=== PATIENT | male | born 1945 | race Caucasian/White ===

== ENCOUNTER 2019-11-11 16:30 | Inpatient (IN) | payer OTHER ==
[~2019-11-11] VITALS: Ht 175.3 cm; Wt 84.4 kg
--- NOTE | ~2019-11-11 | HC ---
[facility] [place] [address] CONSULTATION Name: ODELL ZARAGOZA Room #: 211-P [facility] IN ..#: [id number] Admission: 11/15/19 Attend Phys: Jamar Palumbo MD Discharge: Date of : 45 Report #: [id number] THIS REPORT FOR: cc: JULISA - No family physician/PCP FAM - No family physician/PCP Agustín Carrera MD ~ DATE OF SERVICE: 11/24/2019 HISTORY OF PRESENT ILLNESS: The patient is a 74-year-old white male, admitted with fever, chills, increased shortness of breath, and elevated heart rate, diagnosed with sepsis, SVT, and acute renal insufficiency. He is noted to have acute hypoxic respiratory failure. He is COVID negative. He is noted to have atrial fibrillation and congestive heart failure. He is being followed by multiple acura sales consultant physicians. He has had a significant decline from his premorbid functional status. We are seeing him in rehabilitation medicine consultation. PAST MEDICAL HISTORY: Includes hypertension and prostate CA. He has had a prior pneumothorax and elevated lipids. MEDICATIONS: Please see the full medication listing. ALLERGIES: PENICILLIN. SOCIAL HISTORY: He lives in a house with his , 2 steps in. There is not a bedroom on the main level, but there is a couch. There is a flight of steps up to the bedroom. is there, does not work outside the home. There is an involved daughter, who is a speech therapist. HABITS: Past tobacco usage. REVIEW OF SYSTEMS: No current complaints of chest pain, shortness of breath or abdominal discomfort. PHYSICAL EXAMINATION: GENERAL: A 74-year-old white male, in no obvious distress. VITAL SIGNS: Last recorded temperature 97.4, pulse 82, respirations 18, blood pressure 135/34. NEUROLOGIC: He is alert, follows basic commands. He tends to defer some of the answers to his . NEUROMUSCULOSKELETAL: He has functional range of motion of both upper and lower extremities. Upper extremity strength is probably a grade 3+ to 4-/5. Lower extremity, he has 2+ dependent edema to bilateral shins, strength is probably a grade 3+ to 4-/5. He has been min assist with sit to stand, min assist ambulating short distance holding on to the handrail. He is currently on 4.5 liters at rest. [address] [address] CONSULTATION Name: ODELL ZARAGOZA Jonathan Room #: 211-P [facility] IN .R.#: [id number] Admission: 11/15/19 Attend Phys: Jamar Palumbo MD Discharge: Date of : 45 Report #: [id number] ASSESSMENT: A 74-year-old white male with the following problem list: 1. Medical complexity with generalized debilitation. 2. Acute hypoxic respiratory failure. 3. Severe obstructive sleep apnea. 4. Community-acquired pneumonia. He is COVID-19 negative. 5. Streptococcal bacteremia. 6. Sepsis. 7. Acute diastolic heart failure. 8. Paroxysmal atrial fibrillation with rapid ventricular rate. 9. Acute renal insufficiency. 10. History of chronic tobacco use. 11. Hypertension. 12. Supraventricular tachycardia. PLAN: We will add occupational therapy to assess ADLs. Discuss with the patient's . There was a question of some possible aspiration and we will ask Speech Therapy to do an evaluation. Would anticipate that he should be a good acute in-hospital [address] [place] [address] inpatient rehabilitation candidate as he further medically stabilizes. We will be glad to follow along with you regarding his rehab therapy needs. By: 1151 0032 Agustín Carrera MD /nt
[2019-11-11 16:35] VITALS: BP 107/55
[2019-11-11 17:24] LABS: ANION GAP 10 mmol/L (7-16); BUN 32 mg/dL (7-18); CALCIUM 9.3 mg/dL (8.5-10.1); CHLORIDE 93 mmol/L (98-107); CO2 26 mmol/L (21-32); CREATININE 1.4 mg/dL (0.7-1.3); GLUCOSE 109 mg/dL (74-106); SODIUM 129 mmol/L (136-145)
[2019-11-11 17:31] LABS: HEMATOCRIT 34.6 % (42.0-52.0); HEMOGLOBIN 11.7 gm/dL (14.0-18.0); MCH 33.5 pg (26.0-34.0); MCHC 33.8 g/dL (28.0-37.0); RBC 3.49 mil/uL (4.50-6.00); RDW 13.8 % (10.5-14.5); WBC 16.4 thou/uL (4.0-11.0)
[2019-11-11 17:33] LABS: ALBUMIN 2.9 g/dL (3.4-5.0); SGOT 36 U/L (15-37); SGPT 33 U/L (30-65); TOTAL BILIRUBIN 0.6 mg/dL (0.2-1.0); TOTAL PROTEIN 7.9 g/dL (6.4-8.2); TROPONIN-I <0.06 ng/mL (<0.06)
[2019-11-11] MEDS ORDERED: LOVASTATIN 20 M20 MG PO (18:00)
[2019-11-11 19:55] LABS: URINE BILIRUBIN NEGATIVE (Negative); URINE BLOOD 1+ (Negative); URINE CLARITY CLEAR; URINE COLOR YELLOW; URINE GLUCOSE-RANDOM* NEGATIVE (Negative); URINE KETONES TRACE (Negative); URINE LEUKOCYTES-REFLEX NEGATIVE (Negative); URINE NITRITE-REFLEX NEGATIVE (Negative); URINE PROTEIN (DIPSTICK) NEGATIVE (Negative); URINE UROBILINOGEN 0.2 E.U./dl (0.2-1.0)
[2019-11-11 20:18] VITALS: BP 116/35
[2019-11-11 20:19] LABS: SQUAMOUS 0-3 Few /LPF (0-3); URINE RBC 3-10 Few /HPF (0-2); URINE WBC-REFLEX 0-5 Rare /HPF (0-5)
[2019-11-11 20:20] LABS: BACTERIA-REFLEX 1-9 Few /HPF (None Seen); CRYSTALS None Seen /LPF (None Seen); HYALINE CASTS 0-3 Few /LPF (None Seen)
[2019-11-11 20:24] VITALS: BP 105/34
[2019-11-11 21:20] VITALS: BP 110/36
[2019-11-12] VITALS: BP 105/38
[2019-11-12] MEDS ORDERED: LISINOPRIL-HCT1 EAC1 PO (01:56)
--- NOTE | 2019-11-12 03:34 | NUR ---
ADMIT PT ADMITTED TO [facility] FROM ED FOR VIRAL SEPSIS, VIK AND SVT. PT HAD TESTED FOR COVID 10 DAYS AGO BUT CONTINUED TO HAVE SYMPTOMS SOB, TEMP, CHILLS AND SENT TO URGENT CARE BY PMD FOR ANOTHER COVID TEST. FOUND TO BE TACHYCARDIC AT URGENT CARE SO SENT TO ED, AND ADMITTED A SUSPECTED COVID PATIENT. LABS TAKEN AND PT ORIENTED TO ROOM ,CALL LIGHT AND POC. IVF'S INITIATED ANTIBIOTICS ADMINISTERED ORDERED. CONSULTS TO AND CALLED.
[2019-11-12 04:03] VITALS: BP 100/31
[2019-11-12 05:34] LABS: HEMATOCRIT 35.8 % (42.0-52.0); HEMOGLOBIN 12.2 gm/dL (14.0-18.0); MCH 33.8 pg (26.0-34.0); MCV 99.4 fL (80.0-100.0); RBC 3.6 mil/uL (4.50-6.00); RDW 13.7 % (10.5-14.5)
[2019-11-12 05:42] LABS: CALCIUM 8.8 mg/dL (8.5-10.1); CREATININE 1.6 mg/dL (0.7-1.3); POTASSIUM 3.6 mmol/L (3.5-5.1)
--- NOTE | 2019-11-12 07:47 | EKG ---
[facility] [place] [address] ELECTROCARDIOGRAM REPORT Name: ODELL ZARAGOZA Room #: 355-P ADM IN M.R.#: [id number] Admission: 11/11/19 Attend Phys: Jamar Palumbo MD Discharge: Date of : 45 Report #: [id number] THIS REPORT FOR: cc: JULISA - No family physician/PCP FAM - No family physician/PCP Tobin Quevedo MD [facility] ~ THIS REPORT FOR: //name// [facility] ED Test Date: 2019-11-11 Test Time: 16:46:51 Pat Name: ODELL ZARAGOZA Department: Room: [facility] Gender: M Yam Curer: kf : 1945 Requested By: Matt Ivan Order Number: [id number] MD: Tobin Quevedo Measurements Intervals [place] Rate: 110 P: 68 CA: 159 QRS: 208 QRSD: 92 T: 41 QT: 322 QTc: 436 Interpretive Statements Sinus tachycardia Possible anteroseptal infarct, age indeterminate Baseline wander in lead(s) II,III,aVF No previous ECG available for comparison Electronically Signed On 11-12-2019 7:47:16 CDT by Tobin Quevedo [email or web address] <ELECTRONICALLY SIGNED> By: Tobin Quevedo MD, FAC 11/12/19 0747 [id number] Tobin Quevedo MD, [facility] /EPI
[2019-11-12 09:04] VITALS: BP 116/44
[2019-11-12 16:37] VITALS: BP 100/35
--- NOTE | 2019-11-12 18:09 | NUR ---
ASSUMED PATIENT CARE AT 0700. A/O X4. NSR ON MONITOR. COVID NEGATIVE. PROGRESSING TOWARDS POC GOALS.
[2019-11-12 19:46] VITALS: BP 102/41
[2019-11-13] VITALS (7 sets, daily range): BP systolic 113–145; BP diastolic 42–53
[2019-11-13 03:57] LABS: BE(vivo) -7.5 mmol/L (-2 to +3); PO2 84.7 mmHg (80.0-100.0); sO2 94.6 % (92.0-98.0)
[2019-11-13 03:59] LABS: pH 7.237 (7.360-7.450)
[2019-11-13 04:06] LABS: HEMATOCRIT 40.5 % (42.0-52.0); HEMOGLOBIN 13.5 gm/dL (14.0-18.0); MCH 33.4 pg (26.0-34.0); MCHC 33.4 g/dL (28.0-37.0); MCV 99.9 fL (80.0-100.0); RBC 4.06 mil/uL (4.50-6.00); RDW 13.6 % (10.5-14.5); WBC 22.5 thou/uL (4.0-11.0)
[2019-11-13 04:10] LABS: CALCIUM 8.9 mg/dL (8.5-10.1); CREATININE 1.1 mg/dL (0.7-1.3); MAGNESIUM 1.8 mg/dL (1.8-2.4)
--- NOTE | 2019-11-13 04:34 | NUR ---
Pt c/o increased shortness of air with decreased O2 sats. OPERATIONS SUPPORT REPRESENTATIVE called. See OPERATIONS SUPPORT REPRESENTATIVE flowsheet.
--- NOTE | 2019-11-13 05:26 | NUR ---
rat team called at 0355 for increased respiratory distress o2 sats in 80's on 2 liters tachypenic and tachycardic. cxr, abg,s rt tx's and labs ordered. rat team and clarissa sánchez gas operations superintendent in to evaluate pt 40 mg iv lasix given ivp, 125 mg solumedrol ordered and given ivp, fluids dc's. abg's completed shows some acidosis pt placed on bipap, cxr results show the elevated right diagphram and some infiltrates on the left and some plueral effusion on the right. vss bp 148/60, hr 125, rr 25 temp 98.2 o2 sat on bipap 100%. continue to monitor.
--- NOTE | 2019-11-13 06:22 | NUR ---
progress pt sleeping tolerating bipap voiding larger amounts 1000 out so far this shift, iv fluids dc'd iv antibiotics continue, RT tx's as ordered repeat labs and abg ordered for this am tele intact reading sr with rates back to the 80's to 90's. continue to monitor
[2019-11-13 06:36] LABS: BE(vivo) -6.1 mmol/L (-2 to +3); HCO3 20.3 mmol/L (22.0-26.0); PCO2 43.2 mmHg (35.0-45.0); PO2 92.1 mmHg (80.0-100.0); sO2 96.2 % (92.0-98.0)
--- NOTE | 2019-11-13 11:26 | NUR ---
ASSUMED PATIENT CARE THIS AM AT APPROXIMATELY 0700. PATIENT AWAKE ALERT ORIENTED. ON BIPAP AT 50% AND O2 SAT GREATER THAN 96%. ATTEMPTED TO TAKE PATIENT OFF BIPAP THIS AM FOR BREAKFAST AND RT SWITCHED PATIENT TO HIGHFLOW NC. PATIENT UNABLE TO TOLERATE NC ALTHOUGH O2 SAT STAYED STABLE AT 94% BUT WANTED TO BE PLACED BACK ON BIPAP. PATIENT RESPIRATIONS EVEN AND SLIGHTLY LABORED THIS AM BUT STATES THAT HE FEELS THAT HIS BREATHING IS BETTER. CALLED TO UPDATE ON PATIENT CONDITION AND OVERNIGHT OCCURANCES, STATES SHE WOULD LIKE TO SPEAK WITH DR. FIELDS THIS AM. DR. FIELDS MADE AWARE AND SPOKE WITH TO UPDATE ON PLAN OF CARE. SEE NEW ORDERS FOR DR. DASILVA CONSULT, CALLED THIS AM TO ANSWERING SERVICE AND AWAITING CALL BACK. OBTAINED NEW ROOM ON CCU AND PATIENT TRANSFERRED AT ABOUT 1100 VIA WHEELCHAIR, REPORT CALLED TO MILI ERIC. PATIENT MADE AWARE OF TRANSFER, ROOM NUMBER AND VISITING HOURS.
--- NOTE | 2019-11-13 19:42 | NUR ---
PT CARE ASSUMED AT 1200. ASSESSMENT CHARTED. MEDICATION CHARTED. LFA IV. BIPAP 16/6/; 50%; 18 RR. O2 HIGH FLOW 8LPM NC. WHEEZES. AO X 4. SBA.
--- NOTE | 2019-11-13 19:45 | NUR ---
CALL MULTIPLE TIMES TO ALL NUMBERS ASSOCIATED WITH DR. العراقي: ANSWERING SERVICE RINGS ONCE AND STATES "GOOD BYE" AND DISCONNECTS. ATTEMPTED TO REACH VIA OFFICE NUMBER, BUT WAS UNABLE TO DIRECTLY CONTACT HIM. LEFT MESSAGE ON CONSULTATION PHONE.
[2019-11-14] VITALS (8 sets, daily range): BP systolic 109–139; BP diastolic 40–58
--- NOTE | 2019-11-14 01:48 | NUR ---
PATIENT WOKE FROM SLEEP TO CALL AND STATE THAT HE FELT SHORT OF BREATH, AUDIBLY WHEEZING HEARD FROM DOORWAY. 8L HFNC, SATS 95%, MILDLY LABORED. CALL TO DR. DASILVA TO REQUEST LASIX PATIENT IS FLUID POSITIVE AND POSSIBLY STEROIDS ON RECOMMENDATION OF RT. ORDERS RECIEVED, BIPAP PLACED ON PATIENT
[2019-11-14 02:49] LABS: HEMATOCRIT 36.5 % (42.0-52.0); HEMOGLOBIN 12.2 gm/dL (14.0-18.0); MCH 33.2 pg (26.0-34.0); MCHC 33.4 g/dL (28.0-37.0); MCV 99.4 fL (80.0-100.0); RBC 3.67 mil/uL (4.50-6.00); RDW 13.4 % (10.5-14.5); WBC 20.4 thou/uL (4.0-11.0)
[2019-11-14 03:02] LABS: CREATININE 1.5 mg/dL (0.7-1.3); POTASSIUM 3.7 mmol/L (3.5-5.1)
[2019-11-14 03:13] LABS: CALCIUM 8.5 mg/dL (8.5-10.1)
--- NOTE | 2019-11-14 11:11 | 2DMMODE ---
[facility] [place] [address] 2 D/M-MODE ECHOCARDIOGRAM Name: ODELL ZARAGOZA Room #: 211-P ADM IN .R.#: [id number] Admission: 11/11/19 Attend Phys: Jamar Palumbo MD Discharge: Date of : 45 Report #: [id number] THIS REPORT FOR: cc: JULISA Gutiérrez family physician/PCP JULISA - Marla family physician/PCP Kalpesh Hines MD [facility] ~ APPROVED REPORT Study performed: 11/13/2019 08:43:17 EXAM: Comprehensive 2D, Doppler, and color-flow Echocardiogram Patient Location: Bedside Room #: 355 Status: routine BSA: 1.99 HR: 120 bpm BP: 148/61 mmHg Rhythm: Tachycardia Other Information Study Quality: Technically Difficult Technically limited study due to inability to position patient, patient sitting up on BiPap, difficulty breathing. Indications Tachycardia Hypertension/HDD HLD 2D Dimensions RVDd: 27.69 mm IVSd: 11.74 (7-11mm) LVOT Diam: 19.29 (18-24mm) LVDd: 42.39 mm PWd: 12.67 (7-11mm) LVDs: 24.94 (25-40mm) Aortic Root: 33.14 mm Volumes Left Atrial Volume (Systole) Single Plane 4CH: 39.65 mL Single Plane 2CH: 51.50 mL LA ESV Index: 26.00 mL/m2 Aortic Valve [facility] [address] [address] 2 D/M-MODE ECHOCARDIOGRAM Name: ODELL ZARAGOZA Room #: 211-P ADM IN .R.#: [id number] Admission: 11/11/19 Attend Phys: Jmaar Palumbo, Discharge: Date of : 45 Report #: [id number] AoV Peak Elver.: 1.51 m/s AO Peak Gr.: 11.44 mmHg Tricuspid Valve TR Peak Elver.: 2.94 m/s TR Peak Gr.: 34.58 mmHg Left Ventricle The left ventricle is normal size. Mild concentric left ventricular hypertrophy. The left ventricular systolic function is normal. The left ventricular ejection fraction is within the normal range. LVEF is 55-60%. This study is not technically sufficient to allow evaluation of the LV diastolic function. Right Ventricle The right ventricle is normal size. The right ventricular systolic function is normal. Atria The left atrium size is normal. The right atrium size is normal. Aortic Valve The aortic valve is normal in structure. Moderate aortic regurgitation. There is no aortic valvular stenosis. Mitral Valve The mitral valve is normal in structure. There is no mitral valve regurgitation noted. No evidence of mitral valve stenosis. Tricuspid Valve The tricuspid valve is normal in structure. Trace tricuspid regurgitation. PAP is estimated at 35 mmHg + estimated right atrial pressure. Pulmonic Valve Pulmonic valve is not well visualized. Great Vessels The aortic root is normal in size. IVC is not visualized. Pericardium There is no pericardial effusion. <Conclusion> [facility] [address] [place] [address] 2 D/M-MODE ECHOCARDIOGRAM Name: ODELL ZARAGOZA Jonathan Room #: 211-P ADM IN M.R.#: [id number] Admission: 11/11/19 Attend Phys: Jamar Palumbo, Discharge: Date of : 45 Report #: [id number] Normal ventricle size, mild concentric hypertrophy ejection fraction of 60% No evidence of segmental wall motion normality Trace of tricuspid valve insufficiency PA pressure systolic estimated 35 mmHg Mild to moderate aortic valve insufficiency Negative for pericardial effusion. <ELECTRONICALLY SIGNED> By: Kalpesh Hines MD, FACC 11/14/190 09 09 Kalpesh Hines MD, FACC /INF
--- NOTE | 2019-11-14 18:41 | NUR ---
PT CARE ASSUMED AT 0700. ASSESSMENT CHARTED. MEDICATION CHARTED. DIAPHRAGMATIC HERNIA, PLEURAL EFFUSIONS. PT EXPERIENCED 7-9 EPISODES OF TACHYCARDIA IN THE 150'S APPROX 1400- 1500. BREATHING TX'S CHANGED FROM Q4PRN TO Q4 SCHEDULED. BIPAP 16/6; 50%; 18 RR; HS & PRN. O2 4LPM HFNC; SaO2 96%.
[2019-11-15 04:09] LABS: CALCIUM 8.5 mg/dL (8.5-10.1); CREATININE 1.4 mg/dL (0.7-1.3); POTASSIUM 4.1 mmol/L (3.5-5.1)
[2019-11-15 04:16] VITALS: BP 146/57
--- NOTE | 2019-11-15 06:41 | NUR ---
ASSESSMENTS CHARTED, MEDS CHARTED GIVEN. PT RESTING IN BED DURING SHIFT. AUDIBLE WHEEZES. PATIENT UNABLE TO HANDLE THE BIPAP AT NIGHT, NOR THE CPAP. HAS BEEN ON NC SINCE. ON ABX THERAPY DURING SHIFT. FALL PRECAUTIONS IN PLACE DURING SHIFT. DENIED PAIN.
[2019-11-15 08:35] VITALS: BP 133/50
[2019-11-15 11:45] VITALS: BP 149/49
[2019-11-15 16:00] VITALS: BP 128/48
--- NOTE | 2019-11-15 17:28 | NUR ---
met with patient and . Patient admits with fever, cough. Patient has neg COVID test. Patient/ reside in independent home. Patient has steps in home and no difficulty. No hx of DME. or HH care. Patient cont to drive. Therapy evals ordered. patient reports difficulty with endurance. he is rec oxygen which he does not use at home. He also has used BIPAP that he also does not have at home. Planned echo in am. Casemgt following.
[2019-11-15 18:47] LABS: URINE BILIRUBIN NEGATIVE (Negative); URINE BLOOD NEGATIVE (Negative); URINE CLARITY CLEAR; URINE COLOR YELLOW; URINE GLUCOSE-RANDOM* NEGATIVE (Negative); URINE KETONES NEGATIVE (Negative); URINE LEUKOCYTES NEGATIVE (Negative); URINE NITRITE NEGATIVE (Negative); URINE PROTEIN (DIPSTICK) NEGATIVE (Negative); URINE UROBILINOGEN 0.2 E.U./dl (0.2-1.0)
--- NOTE | 2019-11-15 18:50 | NUR ---
ASSUMED CARE OF PT AT SHIFT CHANGE. ASSESSMENTS CHARTED. MEDS GIVEN PER APR. PT A&OX4, NO C/O PAIN. PT O2 REDUCED TO 2L FROM 4L. AUDIBLE WHEEZES. NO C/O SOA. HR OCCASIONALLY SPIKES TO 150S, BUT NOT SUSTAINED. PLAN FOR ANGELA IN [facility]. WILL CONTINUE TO MONITOR AND FOLLOW POC.
[2019-11-15 20:21] VITALS: BP 162/48
--- NOTE | 2019-11-16 00:29 | NUR ---
ASSESSMENTS CHARTED, MEDS CHARTED GIVEN. PATIENT RESTING IN BED DURING SHIFT. STATES FEELING BETTER, BREATHING EASIER. NPO SINCE MIDNIGHT FOR TRANS ESOPHOGEAL PROCESS IN AM. PT C/O BURING WHEN URINATING, LAB RESULTS ARE NEGATIVE ON URINE. FALL PRECAUTIONS IN PLACE DURING SHIFT. DENIED PAIN.
[2019-11-16 04:43] VITALS: BP 134/72
[2019-11-16 07:30] VITALS: BP 141/64
[2019-11-16 11:20] VITALS: BP 131/55
[2019-11-16 16:00] VITALS: BP 126/57
--- NOTE | 2019-11-16 17:34 | NUR ---
ASSUMED CARE OF PT AT SHIFT CHANGE. ASSESSMENTS CHARTED. MEDS GIVEN PER APR. PT A&OX4, NO C/O PAIN. ANGELA POSTPONED UNTIL TOMORROW, AUDIBLE WHEEZE IS A BIT BETTER. ON 2L NC. WILL CONTINUE TO MONITOR AND FOLLOW POC.
[2019-11-16 20:11] VITALS: BP 138/44
[2019-11-17 03:30] VITALS: BP 131/52
--- NOTE | 2019-11-17 05:24 | NUR ---
SLEPT PART OF SHIFT UP IN CHAIR. ASSISTED TO BATHROOM X2 WITH ELEVATED HR 150-160'S. ONCE BACK TO CHAIR HR BACK TO 90-110. DENIES COMPLAINTS OF PAIN. DOES HAVE SHORTNESS OF AIR. RT PRN BREATHING TREATMENTS ADDED, PATIENT BECOMES ANXIOUS WITH SHORTNESS OF AIR AT TIMES. WORKING ON GOALS AND PLAN OF CARE FOR NOC. O2 HAS REMAINED ON 4L/NC THIS SHIFT. NO FURTHER AUDIBLE WHEEZES NOTED THIS AM. NOT PROGRESSING TOWARDS DISCHARGE GOALS AT THIS TIME. CONTINUE TO ASSES CLOSELY.
[2019-11-17 08:33] VITALS: BP 123/41
[2019-11-17 10:13] LABS: CALCIUM 9.1 mg/dL (8.5-10.1); CREATININE 0.9 mg/dL (0.7-1.3); POTASSIUM 5.6 mmol/L (3.5-5.1)
[2019-11-17 12:00] VITALS: BP 128/52
--- NOTE | 2019-11-17 14:07 | NUR ---
Patient unable to lay flat for ANGELA, cont diuresing. Casemgt following, therapy evals in process.
--- NOTE | 2019-11-17 14:47 | EKG ---
[facility] [place] [address] ELECTROCARDIOGRAM REPORT Name: ODELL ZARAGOZA Room #: 211-P ADM IN M.R.#: [id number] Admission: 11/15/19 Attend Phys: Jamar Palumbo MD Discharge: Date of : 45 Report #: [id number] THIS REPORT FOR: cc: JULISA - No family physician/PCP FAM - No family physician/PCP Ry Person MD ~ THIS REPORT FOR: //name// [facility] Test Date: 2019-11-17 Test Time: 14:36:23 Pat Name: ODELL ZARAGOZA Department: Room: 211 P Gender: M Measurement And Sensing Technician: EMANUEL : 1945 Requested By: Kalpesh Hines Order Number: [id number] MD: Ry Person Measurements Intervals [place] Rate: 103 P: 66 NV: 160 QRS: -70 QRSD: 93 T: 47 QT: 356 QTc: 466 Interpretive Statements Sinus tachycardia Multiple premature complexes, vent & supraven left atrial enlargement Left axis deviation Low voltage, extremity leads Abnormal R-wave progression, late transition Compared to ECG 11/11/2019 16:46:51 Left-axis deviation now present Low QRS voltage now present Electronically Signed On 11-17-2019 14:47:12 CDT by Ry Person [email or web address] <ELECTRONICALLY SIGNED> By: Ry Person MD 11/17/19 1447 [id number] Ry Person MD /EPI
--- NOTE | 2019-11-17 16:43 | NUR ---
ASSUMED CARE OF PT AT SHIFT CHANGE. ASSESSMENTS CHARTED. MEDS GIVEN PER APR. PT A&OX4, NO C/O PAIN. PT ON 4L NC. ANGELA CANCELLED PT COULD NOT LAY FLAT D/T SOA. HR BEGAN TO SPIKE UP AND DOWN TO 150-170S, POSSIBLE AFIB. NOTIFIED CARDIOLOGY WHO STARTED DILTIAZEM AND ELOQUIS. HR NOW MORE STABLE. WILL CONTINUE TO MONITOR AND FOLLOW POC.
[2019-11-17 16:57] VITALS: BP 114/31
[2019-11-17 20:00] VITALS: BP 118/49
[2019-11-18] VITALS (7 sets, daily range): BP systolic 112–127; BP diastolic 43–89
[2019-11-18 06:03] LABS: HEMATOCRIT 39.1 % (42.0-52.0); MCHC 33.2 g/dL (28.0-37.0); MCV 99.4 fL (80.0-100.0); PLATELET COUNT 397 thou/uL (150-400); RBC 3.94 mil/uL (4.50-6.00); WBC 19.9 thou/uL (4.0-11.0)
[2019-11-18 06:13] LABS: CALCIUM 9.2 mg/dL (8.5-10.1); TOTAL BILIRUBIN 0.8 mg/dL (0.2-1.0); TOTAL PROTEIN 6.8 g/dL (6.4-8.2)
[2019-11-18 06:16] LABS: POTASSIUM 4.4 mmol/L (3.5-5.1)
--- NOTE | 2019-11-18 06:30 | NUR ---
SLEPT PART OF SHIFT IN BED AND UP IN CHAIR. AT 0036 TELEMETRY SHOWS INCREASED FREQUENCY OF AFIB RATE 150-160'S. VSS. NOTIFIED CARDIOLOGY AND STARTED ON CARDIZEM GTT AT 5CC/HR. HR THIS AM SR RATE 80-90'S. PATIENT REMAINS WITHOUT COMPLAINTS BUT STILL WITH SHORTNESS OF AIR WITH ACTIVITY. O2 REMAINS AT 4.5L/NC, LUNG SOUNDS REMAIN COURSE. NO AUDIBLE WHEEZES. WORKING ON GOALS AND PLAN OF CARE FOR NOC. CONTINUE TO ASSES CLOSELY.
[2019-11-18 07:24] LABS: ABSOLUTE NEUTROPHILS 18.9 thou/uL (1.4-8.2)
[2019-11-18 07:25] LABS: LARGE PLATELETS OCCASIONAL; PLATELET ESTIMATE NORMAL
--- NOTE | 2019-11-18 09:33 | EKG ---
[facility] [place] [address] ELECTROCARDIOGRAM REPORT Name: ODELL ZARAGOZA Room #: 211-P ADM IN M.R.#: [id number] Admission: 11/15/19 Attend Phys: Jamar Palumbo MD Discharge: Date of : 45 Report #: [id number] THIS REPORT FOR: cc: JULISA - No family physician/PCP FAM - No family physician/PCP Ry Person MD ~ THIS REPORT FOR: //name// [facility] Test Date: 2019-11-18 Test Time: 01:04:09 Pat Name: ODELL ZARAGOZA Department: Room: 211 P Gender: M Licensed Insurance Sales Agent: 2N : 1945 Requested By: Abbi Medeiros Order Number: [id number] MD: Ry Person Measurements Intervals [place] Rate: 119 P: [place]: QRS: -83 QRSD: 94 T: 50 QT: 332 QTc: 468 Interpretive Statements Sinus rhythm with an episode of atrial fibrillation Left axis deviation low voltage, extremity leads Baseline wander in lead(s) V2 Compared to ECG 11/17/2019 14:36:23 Self-limited atrial fibrillation is new Electronically Signed On 11-18-2019 9:33:38 CDT by Ry Person [email or web address] <ELECTRONICALLY SIGNED> By: Ry Person MD 11/18/19 0933 3 3 Ry Person MD /EPI
--- NOTE | 2019-11-18 12:24 | NUR ---
Case discussed with the care team in unit rounds. Pt started on cardezim gtt and possible ANGELA procedure today. DC timeframe is uncertain. PT/OT evaling pt. Will follow for possible hh referral.
--- NOTE | 2019-11-18 17:41 | NUR ---
RECEIVED PT'S CARE AROUND 0740; PT. ON CHAIR; ALERT; DURING AM ASSESSMENT AOX4; NO C/O PAIN; AM MEDICATIONS GIVEN; EDUCATED ABOUT IT; EDUCATED ABOUT FLUIDS INTAKE; [facility]; EDUCATED ABOUT IMPORTANCE OF CALLING BEFORE GETTING UP [facility]; UPDATED ABOUT DOSES CHANGED ON CERTAIN MEDICATION [facility]; SR ON THE MONITOR; ONE EPISODE OF TACHY ON THE MONITOR; TITRATE O2 TO 3L; 02 SAT 90%; TITRATE UP TO 3.5; O2 SAT 93%; MONITORING; ASSESSMENT CHARGED; FOLLOWING POC; WILL PASS ON REPORT;
[2019-11-19 00:50] VITALS: BP 112/39
[2019-11-19 04:45] VITALS: BP 140/38
--- NOTE | 2019-11-19 08:03 | NUR ---
SLEPT PART OF SHIFT UP IN CHAIR. ASSISTED TO BATHROOM X2 LAST NOC. WITH FIRST TIME UP TO BATHROOM DESAT TO 80'% AND TOOK 30 MIN TO RECOVER PAST INCREASING O2 TO 6L/NC FROM 3.5. WITH SECOND TRIP INCREASED O2 TO 6L/NC WHILE UP AND TOLERATED BETTER. DENIES COMPLAINTS OF PAIN AND STILL HAS SHORTNESS OF AIR WITH ACTIVITY AND SOMETIMES AT REST. WORKING ON GOALS AND PLAN OF CARE FOR NOC. RHYTHM REMAINS IN SR RATE IN 90'S WITHOUT BURSTS OF AFIB THIS SHIFT. CONTINUE TO ASSES.
[2019-11-19 08:42] LABS: CALCIUM 9.4 mg/dL (8.5-10.1); CREATININE 1.3 mg/dL (0.7-1.3); POTASSIUM 4.9 mmol/L (3.5-5.1)
[2019-11-19 09:37] VITALS: BP 120/55
[2019-11-19 20:20] VITALS: BP 142/55
--- NOTE | 2019-11-19 21:40 | NUR ---
RECEIVED PT'S CARE AROUND 714; PT. ON CHAIR; ALERT; NOTICED LABORATED BREATHING; WHEEZING WITHOUT STETHOSCOPE; QUENCHER OPERATOR CORSET FITTER NOTIFIED; ORDERS ON PLACED; GONE FOR XRAY; SOB WITH EXERTION; 02 INCREASE TO 6L BY RT; O2 SAT 90%; O2 7L WITH AMBULATION; CARDIOLOGY NOTIFIED DURING ROUNDING; ORDERS RECEIVED; D/C CARDIZEM GTT; DR. PEREZ NOTIFIED DURING ROUNDING; ORDERS RECEIVED; PAGED DR. HYDE AND NOTIFIED GROCERY CLERK SELLING RECOMMENDATIONS; ORDERS RECEIVED; ONE TIME 40 MG LASIX GIVEN ONE TIME; BYPAP APPLIED DURING THE DAY; EDUCATED ABOUT USING BYPAP AT HS; [facility]; SPOUSE EDUCATED ABOUT POC & GOALS; [facility]; PT. ABLE TO REST DURING THE AFTEROON; EASY BREATHING DURING THE EVENING & DURING MEALS; SR ON THE MONITOR; ASSESSMENT CHARGED; FOLLOWING POC; PASSED ON REPORT;
[2019-11-20 04:45] VITALS: BP 129/57
[2019-11-20 05:03] LABS: CALCIUM 9.5 mg/dL (8.5-10.1); CREATININE 1.2 mg/dL (0.7-1.3); POTASSIUM 4.3 mmol/L (3.5-5.1)
--- NOTE | 2019-11-20 06:19 | NUR ---
PT ON HIS BIPAP TILL 129 THEN HE WAS UP TO CHAIR WITH 6L/HFC, NO C/O PAIN, VOIDING PER URINAL, VSS HR REMAINS NSR, PT/OT TO EVAL AND TX , WILL CON'T TO MONITOR PER PPOC.
[2019-11-20 08:10] VITALS: BP 139/38
[2019-11-20 12:00] VITALS: BP 127/49
--- NOTE | 2019-11-20 15:41 | NUR ---
ASSUMED CARE AT CHANGE OF SHIFT. ALERT X4, SOB WITH ELEVATED HEART RATE POST BREATHIN TX WHICH HRATE KIARA 164 AND IRREGULAR. CARDIOLOGY NOTIFIED WITH ODERS FOR AMIO DRIP. AT THIS TIME NSR. DENIES CHEST PAIN. KIARA FLOW NC 5L.EDEMA TO LE ENCOURAGED TO ELEVATE LEGS. DIURRESIS AND VOIDING 1400 AT THIS TIME. ASSIST X1. PERFERS TO REMAIN IN CHAIR. FALL PRECATIONS IN PLACE.
[2019-11-20 15:55] VITALS: BP 140/35
--- NOTE | 2019-11-20 18:43 | NUR ---
PT RESTING IN CHAIR, AT SIDE ASSISTING WITH URINAL WHEN NEEDED. REVIEWED MEDICATIONS AND POC WITH BOTH, 2ND IV PUT IN LFA BY IV TEAM, VANC STARTED, REASSURED PT THAT NURSING STAFF WOULD TAKE CARE OF HIS NEEDS DURING THE NIGHT
[2019-11-20 20:00] VITALS: BP 150/48; BP 150/78
[2019-11-21 00:32] VITALS: BP 145/43
[2019-11-21 04:11] VITALS: BP 135/35
[2019-11-21 08:09] VITALS: BP 143/34
[2019-11-21 12:15] VITALS: BP 138/35
[2019-11-21 15:50] VITALS: BP 142/44
[2019-11-21 16:58] LABS: BE(vivo) 7.4 mmol/L (-2 to +3); HCO3 32.5 mmol/L (22.0-26.0); PO2 73.6 mmHg (80.0-100.0); pH 7.458 (7.360-7.450); sO2 95.4 % (92.0-98.0)
--- NOTE | 2019-11-21 19:02 | NUR ---
PT GREW INCREASING ANXIOUS THROUGH OUT THE DAY STATING THAT HE FELT SHORT OF BREATH, RT SAID HIS O2 SATS WERE DROPPING TO 92 WHILE O2, CALLED DR DASILVA, HE CAME AND SAW PT, ORDERED BIPAP TO BE PUT BACK ON, PT HAS WORN BIPAP SINCE [place] 1300, STILL SOA, VERY DROWSY, HAS BEEN AT SIDE TO REORIENT PT WAKES UP SOMEWHAT CONFUSED, NO SITTER AVAILABLE, REPORT GIVEN TO ALFA,
[2019-11-21 20:27] VITALS: BP 138/46
[2019-11-22] VITALS (7 sets, daily range): BP systolic 105–152; BP diastolic 37–52
--- NOTE | 2019-11-22 04:42 | NUR ---
pt care assumed at around 1900, pt is awake, alert and oriented, at bedside, sr on the monitor, rates controlled in the 70s, assessments as charted, pt remains on bipap at all time, frequent rounding and education med to pt to keep the bipap on, states understanding, pt mildly anxious and could not sleep, glass or mirror inspector notified, order received for hydroxyzinex1, vss, states feeling better, will continue to monitor
[2019-11-22 05:21] LABS: CREATININE 1.2 mg/dL (0.7-1.3); POTASSIUM 3.6 mmol/L (3.5-5.1)
--- NOTE | 2019-11-22 14:30 | NUR ---
Nutrition: pt admitted with severe MAURO, CAP. Seen for LOS. PMH: HTN, HLD, COPD, prostate CA. Current weight up 10# from usual. Has 3+ bilateral leg/feet edema. On lasix. Pt/ familiar with diet and watch Na+ at home. PO intake averaging 70% of meals with the exception of yesterday when pt required the bipap all day. Reports improvement today and no longer on the bipap. Provided menu and instructed on ordering as desired. Low risk.
--- NOTE | 2019-11-22 19:06 | NUR ---
RECEIVED PT'S CARE AROUND 0710; PT. ON BED; ALERT; DURING AM ASSESSMENT NO C/O PAIN; AM MEDICATIONS GIVEN; PER SR. BARRETT ANGELA SCHEDULED TOMORROW 11/23/19; PASSED ON REPORT; C/O PAIN DURING THE AFTERNOON; PRN ACETAMINIPHEN GIVEN; EARLY ON THE AFTERNOON REQUESTED TO GO BACK TO BED; EDUCATED ABOUT REQUESTING CPAP BACK; RT NOTIFIED; SR ON THE MONITOR; ASSESSMENT CHARGED; FOLLOWING POC; CARDIAC REHAB NOTIFIED ABOUT NEW CHF X3; PASSED ON REPORT;
[2019-11-23 03:39] LABS: CALCIUM 9.1 mg/dL (8.5-10.1); CREATININE 1.7 mg/dL (0.7-1.3); POTASSIUM 3.6 mmol/L (3.5-5.1)
[2019-11-23 04:45] VITALS: BP 134/36
--- NOTE | 2019-11-23 06:44 | NUR ---
assumed pt care at the chnage of shift, pt is awake, alert and oriented, denies concerns during assessment, assessments as charted, bipap worn all night, o2sats stable, pt up to the chair this am, c/o hip pain, tyl given prn, no acute distress noted, will pass on report
[2019-11-23 08:00] VITALS: BP 146/40
[2019-11-23 12:00] VITALS: BP 139/36
[2019-11-23 16:43] VITALS: BP 128/33
--- NOTE | 2019-11-23 17:22 | NUR ---
RECEIVED PT'S CARE AROUND 709; PT. ON CHAIR; ALERT; DURING AM ASSESSMENT AOX4; C/O PAIN OVER HIPS; REFUSED PRN PAIN MEDICATION; EDUCATED ABOUT PAIN MANAGEMENT; [facility]; AM MEDICATIONS GIVEN; PER DR. BARRETT MILLER POST PONE INDEFINITELY; DR. AMARAL, DR. العراقي & DR. PEREZ NOTIFIED; THROUGH THE DAY NOT C/O SOB; ABLE TO AMBULATE FROM BED TO RESTHROOM WITHOUT C/O SOB; WORKED WITH PT; SR ON THE MONITOR; EDUCATED ABOUT FALL PRECAUTIONS; [facility] UNDERSTAND[facility]; ASSESSMENT CHARGED; FOLLOWING POC; WILL PASS ON REPORT;
[2019-11-23 19:05] VITALS: BP 147/36
[2019-11-24 04:03] VITALS: BP 158/43
--- NOTE | 2019-11-24 04:40 | NUR ---
assumed pt care at the change of shift, pt is awake, alert and oriented, up to the chair, sr on the monitor, assessments as charted, pt was on 4.5l o2 via nasal canula, o2sats stable; pt but on bipap, tolerating well, no acute distress noted, will continue to monitor
[2019-11-24 06:35] LABS: CREATININE 1.5 mg/dL (0.7-1.3); POTASSIUM 3.5 mmol/L (3.5-5.1)
[2019-11-24 08:25] VITALS: BP 135/34
[2019-11-24 11:30] VITALS: BP 125/30
[2019-11-24 16:29] VITALS: BP 135/34
--- NOTE | 2019-11-24 18:47 | NUR ---
ASSUMED CARE AT CHANGE OF SHIFT. EDEMA WITH HEAVINESS TO LE. ENCOURAGE PT TO MOVE TO BED TO HELP ELEVATE. ST BESSIE Castillo NOTES. NO CHANGE IN DIET ORDERS. COMPLAINT WITH CARES. BEDSIDE. CONTINUES TO PROGRESS TOWARDS GOALS. FALL PRECATION, CALL LIGHT AND PERSONAL ITEMS IN REACH.
[2019-11-24 19:30] VITALS: BP 138/38
[2019-11-24 23:52] VITALS: BP 155/42
[2019-11-25 04:30] VITALS: BP 119/40
[2019-11-25 05:11] LABS: CALCIUM 8.7 mg/dL (8.5-10.1); CREATININE 1.5 mg/dL (0.7-1.3)
[2019-11-25 06:17] LABS: HEMOGLOBIN 12.9 gm/dL (14.0-18.0); MCHC 33.1 g/dL (28.0-37.0); MCV 99.6 fL (80.0-100.0); RBC 3.92 mil/uL (4.50-6.00); RDW 13.7 % (10.5-14.5); WBC 16.7 thou/uL (4.0-11.0)
[2019-11-25 07:17] VITALS: BP 123/31
--- NOTE | 2019-11-25 10:52 | NUR ---
DC planning recommendations discussed with pt/ at bedside. They are very interested in 5N acute rehab as the pt was indep prior to admission and did not have home o2. He has a flight of steps up to his bedroom and bath and was able to do those prior to admit. He will need an additional week of iv atb as well. 5N liason notified of team recommendation and eval in progress. Pt is being seen by PT/OT/[facility] on hold indefinitely. Pt is too weak to return directly home.
[2019-11-25 11:51] VITALS: BP 115/26
[2019-11-25 16:42] VITALS: BP 135/37
[2019-11-25 20:15] VITALS: BP 127/46
[2019-11-26 04:45] VITALS: BP 124/45
[2019-11-26 05:42] LABS: CALCIUM 8.7 mg/dL (8.5-10.1); CREATININE 1.4 mg/dL (0.7-1.3); POTASSIUM 3.4 mmol/L (3.5-5.1)
[2019-11-26 07:47] VITALS: BP 118/35
--- NOTE | 2019-11-26 09:45 | 2DMMODE ---
[facility] [place] [address] 2 D/M-MODE ECHOCARDIOGRAM Name: ODELL ZARAGOZA Room #: 211-P ADM IN M.R.#: [id number] Admission: 11/15/19 Attend Phys: Jamar Palumbo MD Discharge: Date of : 45 Report #: [id number] THIS REPORT FOR: cc: JULISA - No family physician/PCP FAM - No family physician/PCP Kalpesh Hines MD [facility] ~ APPROVED REPORT Study performed: 11/26/2019 08:44:30 EXAM: Limited 2D, Doppler, and color-flow Echocardiogram Patient Location: Bedside Room #: 211 Status: routine BSA: 2.00 HR: 79 bpm BP: 124/45 mmHg Rhythm: NSR Other Information Study Quality: Fair Technically limited study due to exam done with patient in recliner. Lung interference. Indications Limited follow up echo. High white count. Rule out endocarditis. (Complete echo done 11/13/19) Tricuspid Valve TR Peak Elver.: 3.19 m/s TR Peak Gr.: 41.00 mmHg Left Ventricle The left ventricle is normal size. There is normal LV segmental wall motion. There is normal left ventricular wall thickness. Left ventricular systolic function is normal. LVEF is 55-60%. Right Ventricle The right ventricle is normal size. The right ventricular systolic function is normal. Atria The left atrium size is normal. The right atrium size is normal. [facility] [address] [address] 2 D/M-MODE ECHOCARDIOGRAM Name: ODELL ZARAGOZA Room #: 211-P ADM IN M.R.#: [id number] Admission: 11/15/19 Attend Phys: Jamar Palumbo, Discharge: Date of : 45 Report #: [id number] Aortic Valve Severe aortic regurgitation. Findings are suspicious for aortic valve endocarditis. Mitral Valve The mitral valve is normal in structure. Trace to mild mitral regurgitation. Tricuspid Valve The tricuspid valve is normal in structure. Mild to moderate tricuspid regurgitation. Estimated PAP is 40mmHg plus the right atrial pressure. Great Vessels IVC is not well visualized. Pericardium There is no pericardial effusion. Left pleural effusion noted. <Conclusion> Difficult study due to pulmonary status Evidence of a small mobile echogenicity in the aortic valve best seen on the parasternal long axis views, probably around 0.2 cm in diameter Trileaflet aortic valve Mild aortic as well as mitral valve insufficiency EF 60%, negative for segmental wall motion abnormality Mild tricuspid valve insufficiency, PA pressure estimated 40 mmHg No pericardial effusion <ELECTRONICALLY SIGNED> By: Kalpesh Hines MD, FACC 11/26/19 0945 0945 Kalpesh Hines MD, FACC /INF
[2019-11-26] MEDS ORDERED: PREDNISONE 10 M10 M1 PO (11:15)
[2019-11-26] MEDS ORDERED: IPRATROPIU0.2 MG/1 M INH (11:15)
[2019-11-26] MEDS ORDERED: DILTIAZEM 24HR120 M1 PO (11:15)
[2019-11-26] MEDS ORDERED: LASIX 40 MG TAB40 M2 PO ×2 (11:15→11:17)
[2019-11-26] MEDS ORDERED: VANCOMYCIN1 GM/2002 IV (11:15)
[2019-11-26] MEDS ORDERED: PACERONE 200 M200 M1 PO (11:15)
[2019-11-26] MEDS ORDERED: ELIQUIS5 MG PO (11:15)
[2019-11-26] MEDS ORDERED: LEVALBUTER1.25 MG/0. INH (11:15)
[2019-11-26] MEDS ORDERED: S2 RACEPINEPHR1 EACH INH (11:15)
[2019-11-26] MEDS ORDERED: PEPCID20 MG PO (11:15)
[2019-11-26] MEDS ORDERED: TYLENOL325 MG PO (11:15)
[2019-11-26] MEDS ORDERED: MELATONIN5 M1 PO (11:15)
[2019-11-26] MEDS ORDERED: PULMICORT0.5 MG/22 INH (11:15)
--- NOTE | 2019-11-26 11:48 | NUR ---
Pt dcing to 5N acute rehab today. He will continue iv lasix/iv atb as well as bipap/ weaning of o2. Goal is to return home indep with his spouse. 5N cm to follow for HH referral and possible home o2 at dc.
--- NOTE | 2019-11-26 12:06 | NUR ---
REPORT CALLED TO JOSE ELIAS GARCES ON 5N REHAB.
[2019-11-26 12:18] VITALS: BP 111/37
== END 2019-11-26 12:48 | DRG 871 ==
LOC: ER 16:30 → 2N 20:15 → EROBS 20:15 → 3W 20:15 → 2N 11-13 11:28 → 3W 11-13 11:28 → 2N 11-16 15:05
PROVIDERS: Emergency Medicine; Hospitalist; Internal Medicine; Internal Medicine Pulmonary Disease; Nurse Practitioner Family; Pediatrics; ADMIT Internal Medicine; ATTEND Internal Medicine
PROC: 5A09357 Assistance with Respiratory Ventilation, Less than 24 Consecutive Hours, Continuous Positive Airway Pressure (ICD-10-PCS; principal; 2019-11-15)
PROC: 5A09357 Assistance with Respiratory Ventilation, Less than 24 Consecutive Hours, Continuous Positive Airway Pressure (ICD-10-PCS; 2019-11-16)
PROC: 5A09357 Assistance with Respiratory Ventilation, Less than 24 Consecutive Hours, Continuous Positive Airway Pressure (ICD-10-PCS; 2019-11-19)
PROC: 5A09357 Assistance with Respiratory Ventilation, Less than 24 Consecutive Hours, Continuous Positive Airway Pressure (ICD-10-PCS; 2019-11-21)
PROC: 5A09357 Assistance with Respiratory Ventilation, Less than 24 Consecutive Hours, Continuous Positive Airway Pressure (ICD-10-PCS; 2019-11-22)
PROC: 5A09357 Assistance with Respiratory Ventilation, Less than 24 Consecutive Hours, Continuous Positive Airway Pressure (ICD-10-PCS; 2019-11-23)
DX: A40.1 Sepsis due to streptococcus, group B (principal); J96.01 Acute respiratory failure with hypoxia; I50.43 Acute on chronic combined systolic (congestive) and diastolic (congestive) heart failure; J69.0 Pneumonitis due to inhalation of food and vomit; E43 Unspecified severe protein-calorie malnutrition; I47.1 Supraventricular tachycardia; I48.19 Other persistent atrial fibrillation; N17.9 Acute kidney failure, unspecified; J44.1 Chronic obstructive pulmonary disease with (acute) exacerbation; E87.3 Alkalosis; J44.0 Chronic obstructive pulmonary disease with (acute) lower respiratory infection; E78.5 Hyperlipidemia, unspecified; Z20.828 Contact with and (suspected) exposure to other viral communicable diseases; T38.0X5A Adverse effect of glucocorticoids and synthetic analogues, initial encounter; I11.0 Hypertensive heart disease with heart failure; K44.9 Diaphragmatic hernia without obstruction or gangrene; G47.33 Obstructive sleep apnea (adult) (pediatric); I48.0 Paroxysmal atrial fibrillation; G47.00 Insomnia, unspecified; I34.0 Nonrheumatic mitral (valve) insufficiency; E87.6 Hypokalemia; N40.0 Benign prostatic hyperplasia without lower urinary tract symptoms; I35.1 Nonrheumatic aortic (valve) insufficiency; Z71.6 Tobacco abuse counseling; Z88.0 Allergy status to penicillin; Z85.46 Personal history of malignant neoplasm of prostate; Z82.3 Family history of stroke; Z87.891 Personal history of nicotine dependence; Z98.42 Cataract extraction status, left eye; Z98.41 Cataract extraction status, right eye; Z79.899 Other long term (current) drug therapy; I35.8 Other nonrheumatic aortic valve disorders
CPT/HCPCS: 10081; 10879

== ENCOUNTER 2019-11-25 16:43 | Inpatient (IN) | payer OTHER ==
[~2019-11-25] VITALS: Ht 152.4 cm; Wt 88.0 kg
--- NOTE | ~2019-11-25 | PLAN ---
[facility] [place] [address] REHAB UNIT PLAN OF CARE Name: ODELL ZARAGOZA Room #: 515-P ADM IN M.R.#: [id number] Admission: 11/26/19 Attend Phys: Agustín Carrera MD Discharge: Date of : 45 Report #: [id number] THIS REPORT FOR: //name// CC: Agustín Carrera [facility] physician/PCP DATE OF SERVICE: 11/29/2019 PROGRESS NOTE AND OVERALL PLAN OF CARE SUBJECTIVE: The patient seen back today in followup. He was in no distress. Last recorded temperature 97.4, pulse 72, respirations 20, and blood pressure 118/72. He is on nasal prong O2, currently up to 8 liters. No calf swelling. Functionally, he has been min assist to try to stand and on 11/27/2019, was able to ambulate a short distance approximately 8 feet with min assist without an assistive device. In occupational therapy, lower body dressing has been max assist. He is also following with Speech Therapy and is noted to have mild cognitive deficits with mild memory deficits. He was not felt to warrant formal dysphagia treatment during his evaluation on 11/25/2019. ASSESSMENT: 1. Medical complexity with generalized debilitation. 2. Acute hypoxic respiratory failure with community-acquired pneumonia. 3. Acute diastolic congestive heart failure. 4. New onset atrial fibrillation. 5. Severe obstructive sleep apnea. 6. Strep bacteremia with sepsis. 7. Acute renal insufficiency. 8. Hypertension. 9. History of tobacco abuse. PLAN: The overall plan of care includes the followin. Estimated length of stay would anticipate another 2 weeks and likely longer. He has significant medical comorbidities. 2. Medical prognosis is reasonably good. 3. Anticipated interventions includes the interdisciplinary acute inpatient rehabilitation program. 4. Anticipated functional outcomes would be for the patient to ideally become modified independent with transfers, mobility and ADLs with or without a device, hopefully on decreased oxygen. Goals to be independent with ADLs as well as further improvement in cognition. 5. Discharge destination will be home with . 6. Expected therapy by discipline includes PT, OT and speech 1 hour per day each five days a week throughout the duration of the acute inpatient rehabilitation stay. We may be able to decrease some of the speech therapy and increase PT and OT as he further improves. [place] [id number] REHAB UNIT PLAN OF CARE Name: ODELL ZARAGOZA [place] Room #: 515-P [facility] IN ..#: [id number] Admission: 11/26/19 Attend Phys: Agustín Carrera MD Discharge: Date of : 45 Report #: [id number] ADDENDUM: The patient did miss some therapy on 11/27/2019 as he was unable to tolerate and there was some issue regarding endurance. He is scheduled to go down for a previously scheduled CT of the chest to follow up regarding his pulmonary infiltrates later today. The patient's prognosis for significant practical improvement within a reasonable period of time appears good. Given the patient's complex medical condition and risk of further medical complications, rehabilitation services could not be safely provided at a lower level of care such as at a assisted facility. By: [id number] Agustín Carrera MD /nt
[~2019-11-25 16:43] MED LIST: LISINOPRIL-HCT1 EAC1 PO; LOVASTATIN 20 M20 MG PO
[2019-11-26] MEDS ORDERED: S2 RACEPINEPHR1 EACH INH (11:15)
[2019-11-26] MEDS ORDERED: PACERONE 200 M200 M1 PO (11:15)
[2019-11-26] MEDS ORDERED: TYLENOL325 MG PO (11:15)
[2019-11-26] MEDS ORDERED: IPRATROPIU0.2 MG/1 M INH (11:15)
[2019-11-26] MEDS ORDERED: MELATONIN5 M1 PO (11:15)
[2019-11-26] MEDS ORDERED: PULMICORT0.5 MG/22 INH (11:15)
[2019-11-26] MEDS ORDERED: PEPCID20 MG PO (11:15)
[2019-11-26] MEDS ORDERED: LEVALBUTER1.25 MG/0. INH (11:15)
[2019-11-26] MEDS ORDERED: LASIX 40 MG TAB40 M2 PO ×2 (11:15→11:17)
[2019-11-26] MEDS ORDERED: PREDNISONE 10 M10 M1 PO (11:15)
[2019-11-26] MEDS ORDERED: VANCOMYCIN1 GM/2002 IV (11:15)
[2019-11-26] MEDS ORDERED: ELIQUIS5 MG PO (11:15)
[2019-11-26] MEDS ORDERED: DILTIAZEM 24HR120 M1 PO (11:15)
--- NOTE | 2019-11-26 13:05 | NUR ---
chart review. cm visited with pt spouse malena via phone call today. phillip going to be dc up to acute rehab today. he is able to make his needs known. intro to cm, dcp and team meeting. he lives at home with , have flight 13 stairs to go up to bedroom and bathrooms. there is 1/2 bath down stairs. he independent, no dme, no nn or rehab in past. using o2 and bipap here. no home o2 or bipap. manage own medication and drives vehicle. pcp is dr dali harris. will cont following as needed for dc needs.
[2019-11-26 13:20] VITALS: BP 138/54
--- NOTE | 2019-11-26 16:20 | NUR ---
ASSUMED CARE OF PATIENT AT 1320. ADMITTED FROM AT 1320. vITAL SIGNS AT 97.5, 138/54, 83, 18 92% PULSE OXIMETRY. DENIES CURRENT SHORTNESS OF BREATH OR PAIN. ON O2 AT 4L/ lUNGS CLEAR, DIMISHED BASES, NON-PRODUCTIVE OCCASIONAL COUGH, BOWEL SOUNDS ACTIVE, SLIGHT RIGHT UPPER QUARANT TENDERNESS, USING URINAL WITH MINIMAL ASSIST. 2+ LEG AND FOOT EDEMA BILATERALLY. LEGS ELEVATED. eNCOURAGED TO USE INCENTIVE FLUTTER EVERY HOUR. COMPLAINED OF BEING TIRED. SAYS HAS NOT SLEPT MUCH AND IS EXHAOUSTED. AT BEDSIDE. COMPLAINING OF SHORTNESS OF BREATH AT 1545, VITAL SIGNS AT 91% PULSE OXIMETRY, 132/44, 79, 18, RESPIRATIONS REGULAR, DEEP. RESPIRATORU THERAPY CALLED TO PLACE PATIENT ON BIPAP. SAYS THUMBS UP FEELING BETTER. RESTING.
[2019-11-26 16:54] VITALS: BP 138/54
[2019-11-26 21:41] VITALS: BP 129/48
--- NOTE | 2019-11-27 02:45 | NUR ---
USING URINAL, BIPAP ON AT 2230, AWAKE AT 0200 FOR URINAL AND 180 CC COLD WATER. BIPAP REAPPLIED AND TOLERATED UNTIL NOW, WHEN HE ASKED FOR IT TO STOP BECAUSE HE IS COUGHING. LEGS ARE SWOLLEN ENOUGH THAT HE AGREES TO ELEVATING LEGS ON PILLOW
--- NOTE | 2019-11-27 03:26 | NUR ---
BIPAP BACK ON PER PT REQUEST, STATES HE WANTS TO "HEAL"
--- NOTE | 2019-11-27 04:35 | NUR ---
TOLERATED BIPAP FOR 2 AND 1/2 HOURS AND TRIED AGAIN BUT ONLY TOLERATED IT FOR ONE HOUR THE SECOND ATTEMPT 150 MINUTES +60 MINUTES 210 MINUTES TOTAL THIS SHIFT
[2019-11-27 06:08] LABS: HEMATOCRIT 40.8 % (42.0-52.0); HEMOGLOBIN 13.2 gm/dL (14.0-18.0); MCH 32.6 pg (26.0-34.0); MCHC 32.5 g/dL (28.0-37.0); MCV 100.5 fL (80.0-100.0); PLATELET COUNT 152 thou/uL (150-400); RBC 4.06 mil/uL (4.50-6.00); RDW 13.8 % (10.5-14.5); WBC 21.5 thou/uL (4.0-11.0)
[2019-11-27 06:28] LABS: ALBUMIN 2.4 g/dL (3.4-5.0); CALCIUM 8.9 mg/dL (8.5-10.1); CREATININE 1.4 mg/dL (0.7-1.3); POTASSIUM 3.7 mmol/L (3.5-5.1); TOTAL BILIRUBIN 1.6 mg/dL (0.2-1.0); TOTAL PROTEIN 5.6 g/dL (6.4-8.2)
[2019-11-27 07:02] LABS: TSH 0.344 uIU/mL (0.358-3.740)
[2019-11-27 07:24] LABS: ABSOLUTE NEUTROPHILS 20.4 thou/uL (1.4-8.2); PLATELET ESTIMATE NORMAL
[2019-11-27 07:40] VITALS: BP 125/46
--- NOTE | 2019-11-27 10:53 | NUR ---
ASSUMED CARE AT 0700. PATIENT IS ALERT AND ORIENTED X4. PATIENT GREGORY'S, PROCESS LINE OPERATOR ARE EQUAL. LUNGS ARE COARESE AND DEMINISHED. 02 AT 4L PER N/C. PATIENT HAD TO BE INCREASED TO 9L TO DO OT AND P.T. PLAN FOR CXR LATER TODAY R/T S.O.B. ABD IS SOFT WITH BSX4. VOIDS PER URINAL HEAVENLY COLORED URINE. UP WITH GAIT BELT AND WALKER TO CHAIR WITH P.T. FALL AND SAFETY PROTOCOLS IN PLACE. DENIES PAIN. CONTINUES TO PROGRESS SLOWLY TOWARDS D/C GOALS. PATIENT HAS S.L. IN HIS LEFT UPPER ARM. AT BEDSIDE. WILL CONTINUE TO MONITER.
[2019-11-27 19:04] VITALS: BP 123/45
--- NOTE | 2019-11-28 03:12 | NUR ---
PT HAS BEEN SOMEWHAT RESTLESS TONIGHT.AFTER BEING PLACED ON THE BIPAP, HE WANTED IT ADJUSTED AND TAKEN OFF SEVERAL TIMES. HE WAS NOT SURE WHETHER HE WANTED IT ON OR OFF. PT FINALLY WANTED BIPAP OFF AT 0050 THEN WITHIN 25 MINUTES WANTED IT BACK ON. PT STATES HE HAS DIFFICULTY SLEEPING,EVEN AFTER HE WAS GIVEN MELATONIN.PT LOOKS FATIGUED. REMAINS ON BIPAP AT THIS TIME. HE IS CALLING FREQUENTLY. BLE ELEVATED. USES HIS URINAL.WLL CONTINUE WITH POC TILL EOS.
[2019-11-28 04:38] VITALS: BP 140/38
[2019-11-28 11:29] LABS: HEMATOCRIT 39.6 % (42.0-52.0); HEMOGLOBIN 13.1 gm/dL (14.0-18.0); MCH 32.9 pg (26.0-34.0); MCHC 33.1 g/dL (28.0-37.0); MCV 99.4 fL (80.0-100.0); RBC 3.99 mil/uL (4.50-6.00); RDW 14.2 % (10.5-14.5); WBC 25.2 thou/uL (4.0-11.0)
[2019-11-28 12:15] LABS: CALCIUM 8.4 mg/dL (8.5-10.1); CREATININE 1.2 mg/dL (0.7-1.3); MAGNESIUM 2.3 mg/dL (1.8-2.4); POTASSIUM 3.6 mmol/L (3.5-5.1)
[2019-11-28 12:35] VITALS: BP 135/81
[2019-11-28 19:45] VITALS: BP 118/72
--- NOTE | 2019-11-29 01:05 | NUR ---
Assumed care on 11/28/19 @ 19:30, in bed wearing o2 @ 2L via n/c. A&Ox3-4, able to speak to his own needs. Somewhat dependent, asks for help doing things that he seems able to do himself, such as reaching for a glass of water at bedside. Wore his bipap from 23:00 until 01:00, then asked to have it off, requested oxygen while the bipap was off, drank water and ate a pudding, then requested to have the bipap put on again. Tolerated p.o. meds whole with thin water, tolerated IV antibiotics. Will continue to monitor as per unit protocol for safety and comfort.
[2019-11-29 07:07] LABS: HEMATOCRIT 36.8 % (42.0-52.0); HEMOGLOBIN 12.1 gm/dL (14.0-18.0); MCH 32.6 pg (26.0-34.0); MCHC 32.8 g/dL (28.0-37.0); MCV 99.5 fL (80.0-100.0); RBC 3.7 mil/uL (4.50-6.00); RDW 13.4 % (10.5-14.5)
[2019-11-29 07:46] LABS: CALCIUM 8.1 mg/dL (8.5-10.1); CREATININE 1.1 mg/dL (0.7-1.3); MAGNESIUM 2.3 mg/dL (1.8-2.4); POTASSIUM 3.4 mmol/L (3.5-5.1)
[2019-11-29 08:00] VITALS: BP 119/34
--- NOTE | 2019-11-29 08:52 | EKG ---
[facility] [place] [address] ELECTROCARDIOGRAM REPORT Name: ODELL ZARAGOZA Room #: 515- ADM IN M.R.#: [id number] Admission: 11/26/19 Attend Phys: Agustín Carrera MD Discharge: Date of : 45 Report #: [id number] THIS REPORT FOR: cc: JULISA - Marla family physician/PCP JULISA - Marla family physician/PCP Tobin Quevedo MD [facility] THIS REPORT FOR: //name// [facility] Test Date: 2019-11-28 Test Time: 15:24:39 Pat Name: ODELL ZARAGOZA Department: Room: [facility] Gender: M Spanner Operator: [facility] : 1945 Requested By: Alberto Marie Order Number: [id number] MD: Tobin Quevedo Measurements Intervals [place] Rate: 80 P: 71 DE: 136 QRS: 70 QRSD: 87 T: 7 QT: 458 QTc: 529 Interpretive Statements Sinus rhythm Atrial premature complex Nonspecific ST and T wave abnormality Poor R wave progression Prolonged QT interval Compared to ECG 11/18/2019 01:04:09 Atrial fibrillation no longer present Electronically Signed On 11-29-2019 8:52:28 CDT by Tobin Quevedo [email or web address] <ELECTRONICALLY SIGNED> By: Tobin Quevedo MD, FAC 11/29/19 0852 1524 1524 Tobin Quevedo MD, FAC /EPI
--- NOTE | 2019-11-29 08:58 | EKG ---
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: EMANUEL : 1945 Requested By: Alberto Marie Order Number: [id number] MD: Tobin Quevedo Measurements Intervals [place] Rate: 79 P: 82 CO: 136 QRS: 102 QRSD: 84 T: QT: 606 QTc: 696 Interpretive Statements Sinus rhythm Right axis deviation Anteroseptal infarct, old Prolonged QT interval Compared to ECG 11/28/2019 15:24:39 Atrial premature complex(es) no longer present Electronically Signed On 11-29-2019 8:58:34 CDT by Tobin Quevedo [email or web address] <ELECTRONICALLY SIGNED> By: Tobin Quevedo MD, FAC 11/29/1958 8 8 Tobin Quevedo MD, FAC /EPI
--- NOTE | 2019-11-29 16:15 | NUR ---
ASSUMED CARE AT 0700. PATIENT IS ALERT AND ORIENTED X4. PATIENT GREGORY'S, TOBACCO DRIER OPERATOR ARE EQUAL. LUNGS ARE COARSE AND DEMINISHED. PATIENT REMAINS ON ABT, PATIENT REMAINS ON RESPIRATORY TX. PATIENT HAD CT OF LUNGS TODAY SHOWING RIGHT AND LEFT INFILTRATES. EKG DONE. ABD IS SOFT WITH BSX4. PATIENT HAS 3+ EDEMA IN HIS LOWER EXTREMITIES. FALL AND SAFETY PROTOCOLS IN PLACE. DENIES PAIN AT THIS TIME. CONTINUES TO PROGRESS SLOWLY TOWARDS D/C GOALS. WILL CONTINUE TO MONITER.
--- NOTE | 2019-11-29 18:56 | NUR ---
VAT CONSULTED FOR A PICC FOR LT ABX. 4FRSLPICC PLACED MASSIEL AND TIP CONFIRMED FOR USE
[2019-11-29 21:04] VITALS: BP 124/42
[2019-11-30 05:48] LABS: HEMATOCRIT 35.3 % (42.0-52.0); HEMOGLOBIN 11.6 gm/dL (14.0-18.0); MCH 32.8 pg (26.0-34.0); MCHC 32.9 g/dL (28.0-37.0); MCV 99.6 fL (80.0-100.0); RBC 3.54 mil/uL (4.50-6.00); RDW 13.8 % (10.5-14.5); WBC 21.6 thou/uL (4.0-11.0)
[2019-11-30 06:23] LABS: CALCIUM 8.3 mg/dL (8.5-10.1); CREATININE 1.2 mg/dL (0.7-1.3); MAGNESIUM 2.3 mg/dL (1.8-2.4); POTASSIUM 3.6 mmol/L (3.5-5.1)
--- NOTE | 2019-11-30 09:27 | NUR ---
Assumed care on 11/29/19 @ 19:30, in bed wearing oxygen @ 8 L via N/C, SpO2 @ 8L. Lung sounds course, diminished and wheezing noted on expiration. SpO2 sats 94-99% on oxygen or BIPAP. A&Ox 3-4. Had a BM @ 19:30. Urinates using urinal, several outputs. PICC IV access in right arm brachial. Access flushes and draws. Patient experiences anxiety related to his breathing machine, adjusting it and asking to have the straps tightened and loosened. Heart healthy diet. Torito wraps to lower extremities removed @ HS. IV antibiotic TX tolerated well. Cooperates with care, meds taken whole with thin water.
[2019-11-30 09:29] VITALS: BP 115/39
--- NOTE | 2019-11-30 10:36 | NUR ---
PATIENT UP IN BEDSIDE CHAIR FOR BREAKFAST AND AM MEDS. PT WORKING WITH THERAPY AND RESP THERAPY. ALERT XS 4 STATES NO PAIN OR RESP DISTRESS., NEEDS SPUTUM CULTURE BUT HAS NOT BEEN ABLE TO GET ANYTHING UP. WILL KEEP TRYING TO GET SPIECMEN OBTANED. AT BEDSIDE. B/M 11/28 C-PAP AT NIGHT. O2 DURING WAKING HOURS.
--- NOTE | 2019-11-30 13:45 | NUR ---
team meeting, reccommendation: he is requriing o2 with therapy and act 15-5L/nc, needs to use bipap when sleeping. pulmonary following. dc home with hh, need to see if main level he can stay on. hh at home when dc.
--- NOTE | 2019-11-30 19:14 | NUR ---
COVID 19 TEST COMPLETED DONE IN RIGHT NARE TAKEN TO LAB.
[2019-11-30 19:24] VITALS: BP 107/33
--- NOTE | 2019-12-01 04:50 | NUR ---
ASSUMED CARE APPROX 0 EVENING 11/29. PT SITTING UP IN RECLINER AT CHANGE OF SHIFT. PT ALERT AND ORIENTED X4, APPROPRIATE AND COOPERATIVE. 02 AT 5L PER N/C. PT SET UP WITH BIPAP BY RT AT HS. PT VOIDING PER URINAL. PT TOOK HS MEDS WITH WATER TOLERATING WELL. PT APPEARS TO BE SLEEPING SOUNDLY WITH HOURLY ROUNDING CHECKS. BED ALARM ON AND CALL LIGHT IN REACH. WILL CONTINUE TO MONITOR.
[2019-12-01 05:42] LABS: HEMOGLOBIN 11.3 gm/dL (14.0-18.0); MCH 32.9 pg (26.0-34.0); MCHC 33.2 g/dL (28.0-37.0); MCV 99.2 fL (80.0-100.0); RBC 3.43 mil/uL (4.50-6.00); RDW 14.1 % (10.5-14.5); WBC 21.3 thou/uL (4.0-11.0)
[2019-12-01 06:36] LABS: CALCIUM 8.4 mg/dL (8.5-10.1); CREATININE 1.2 mg/dL (0.7-1.3); MAGNESIUM 2.4 mg/dL (1.8-2.4); POTASSIUM 3.8 mmol/L (3.5-5.1)
[2019-12-01 08:00] VITALS: BP 111/41
--- NOTE | 2019-12-01 09:24 | EKG ---
[facility] [place] [address] ELECTROCARDIOGRAM REPORT Name: ODELL ZARAGOZA [place] Room #: 515- ADM IN M.R.#: [id number] Admission: 11/26/19 Attend Phys: Agustín Carrera MD Discharge: Date of : 45 Report #: [id number] THIS REPORT FOR: cc: JULISA Gutiérrez family physician/PCP JULISA Gutiérrez family physician/PCP Kalpesh Hines MD [facility] THIS REPORT FOR: //name// [facility] Test Date: 2019-12-01 Test Time: 09:00:29 Pat Name: ODELL ZARAGOZA Department: Room: [facility] Gender: M Home Health Aide Caregiver: EMANUEL : 1945 Requested By: Kalpesh Hines Order Number: [id number] MD: Kalpesh Hines Measurements Intervals [place] Rate: 74 P: 76 WV: 159 QRS: 64 QRSD: 97 T: 38 QT: 423 QTc: 470 Interpretive Statements Sinus rhythm Ventricular premature complex Probable left atrial enlargement Borderline T wave abnormalities Compared to ECG 11/29/2019 08:29:31 No significant changes Electronically Signed On 12-01-2019 9:24:22 CDT by Kalpesh Hines [email or web address] <ELECTRONICALLY SIGNED> By: Kalpesh Hines MD, FACC 12/01/19923 9 9 Kalpesh Hines MD, [facility] /EPI
--- NOTE | 2019-12-01 12:54 | NUR ---
ASSUMED CARE AT 0700. PATIENT IS ALERT AND ORIENTEDX4. PATIENT MOVES ALL EXTREMITIES. PATIENT HAS +3 EDEMA IN HIS LOWER EXTREMITIES. PATIENT CONTINUES ON IV LASIX. PATIENT HAS PICC LINE IN HIS RIGHT AC. LUNGS ARE COARSE AND DEMINISHED . ABD IS SOFT WITH BSX4. PATIENT CONTINUES TO VOID HEAVENLY COLORED URINE. UP IN THE CHAIR FOR MEALS. IV SITE WITHOUT REDNESS OR SWELLING IN THE RIGHT AC. MARYCARMEN WRAPS ON BILATERALLY TO HIS LOWER EXTREMITES. PATIENT ENCOURAGED TO ELEVATE HIS FEET WHEN IN CHAIR. COVID-19 TEST PENDING. FALL AND SAFETY PROTOCOLS IN PLACE. DENIES PAIN. CONTINUES TO PROGRESS TOWARDS D/C GOALS. WILL CONTINUE TO MONITER.
--- NOTE | 2019-12-01 14:03 | NUR ---
PATIENT CALLED TO NURSE'S STATION. WHEN NURSE ARRIVED IN HIS ROOM, HE STATED, "I AM SUPPOSED TO CALL FOR MY MEDICINES, AND IT IS TIME FOR MY AFTERNOON MED." WHEN ASKED WHAT MEDICATION HE NEEDED, HE ASKED HIS TO OBTAIN HIS MED LIST, AND LOOKED AT IT AND STATED, "I NEED MY LASIX, PLEASE." THIS WAS NOTED TO PATIENT'S RN WHO WILL BRING THE MED, IT IS INDEED SCHEDULED FOR 1400.
[2019-12-01 19:35] VITALS: BP 110/37
--- NOTE | 2019-12-01 21:55 | NUR ---
PATIENT ASKING FOR 2100 MEDS PLUS HEMMORHOID CREAM. CREAM APPLIED TO ANUS INTERNALLY AND EXTERNALLY, MOISTURE BARRIER APPLIED TO AREA SURROUNDING PLUS REDDENED AREA AND BUTTOCK RASH. PATIENT ENCOURAGED TO LIE ON SIDE MORE OFTEN, TRIED FOR 15 MINUTES NOW BUT NEEDED TO GET BACK ON HIS BACK IN ORDER TO BREATH A LITTLE BETTER. WOULD LIKE TO GET STARTED ON HIS BIPAP ALREADY. PICC LINE PATENT RIGHT UPPER ARM FOR ANTIBIOTIC NOW.
[2019-12-02 08:00] VITALS: BP 110/35
--- NOTE | 2019-12-02 14:38 | NUR ---
vendor choice form on pt chart.
[2019-12-02 16:15] VITALS: BP 112/38
--- NOTE | 2019-12-02 17:56 | NUR ---
AT BEDSIDE THROUGHOUT SHIFT AND OFFERS ASSISTANCE WITH MEAL SET UP/REPOSITIONING ETC-WHEN NURSE OFFERS STATES "OH SHE CAN DO IT SHE KNOWS HOW I LIKE EVERYTHING" DENIES COMPLAINTS OF PAIN STATING "NO REAL PAIN MY BUT JUST HURTS FROM SITTING TOO MUCH" HEMERHOID CREAM APPIED RECTALLY PRN PER PT REQUEST AT 1000 AND REPEATED AT 1300. USING ROLLER WALKER AND GAIT BELT SBA X1 TO TRANSFER TO/FROM BATROOM/CHAIR/COMMODE. APPETITE IS FAIR. LUNG SOUNDS COURSE-DIMINSHED IN BASES. NO COUGH NOTED OR REPORTED. DOES REPORT SOME EPISODES OF SHORTNESS OF AIR WITH ACTIVITY/EXERTION BUT STATEWS "THAT IS NORMAL FOR ME I THINK IT IS A LITTLE BIT BETTER TODAY" WEARING O2 VIA NC CONTINOUSLY CURRRENTLY SET AT 5 LITERS,
--- NOTE | 2019-12-02 20:10 | NUR ---
CALLING FOR MEDS
[2019-12-02 20:20] VITALS: BP 105/32
--- NOTE | 2019-12-02 22:00 | NUR ---
ASKING FOR MELATONIN
--- NOTE | 2019-12-03 02:28 | NUR ---
PATIENT ENCOURAGED TO LIE ON SIDE TO AVOID BUTTOCK BEDSORE, HE PREFERRED TO LIE SLIGHTLY ON HIS RIGHT SIDE WHILE BIPAP ON. BIPAP ON SINCE 2200 WITH A 15 MINUTE BREAK AT MIDNIGHT TO BLOW HIS NOSE. USING URINAL WITH AND WITHOUT ASSIST FOR 200-250 AT A TIME. C/O STUBBORN COUGH. LOW AIR LOSS THERAPY ALSO STARTED IN ORDER TO EASE ALREADY REDDENED BUTTOCKS
[2019-12-03 08:00] VITALS: BP 103/49
--- NOTE | 2019-12-03 11:54 | H ---
[facility] [place] [address] HISTORY AND PHYSICAL Name: ODELL ZARAGOZA Room #: 515-P ADM IN M.R.#: [id number] Admission: 11/26/19 Attend Phys: Agustín Carrera MD Discharge: Date of : 45 Report #: [id number] THIS REPORT FOR: cc: JULISA - Marla family physician/PCP JULISA - Marla family physician/PCP Agustín Carrera MD ~ CC: Agustín EGAN physician/PCP DATE OF SERVICE: 11/27/2019 PROGRESS NOTE/POST ADMISSION PHYSICIAN EVALUATION HISTORY OF PRESENT ILLNESS: The patient has been admitted for acute in-hospital inpatient rehabilitation. Please see my consult note and the history and physical documentation. He had sepsis, acute hypoxic respiratory failure, acute exacerbation of congestive heart failure, newly diagnosed AFib, acute renal insufficiency. He was given IV steroids, IV antibiotics, IV Lasix, and nebulizers. He continues on O2, fatigues easily. His tolerance was felt to be improved and he was felt to be ready for acute in-hospital inpatient rehabilitation. No new problems were noted today in follow-up. PHYSICAL EXAMINATION: GENERAL: On exam, he was seen earlier, was not noted to be in any distress. VITAL SIGNS: Temperature 97.2, pulse 83, respirations 20, blood pressure 125/46. He was on BiPAP overnight. He is on 4 liters nasal cannula. EXTREMITIES: He has diffuse weakness. Functionally, he has needed assistance as far as basic mobility and transfers. He has been standby assistance with basic transfers prior to his acute rehab admission. Tends to fatigue quickly. ASSESSMENT: 1. Medical complexity with generalized debilitation. 2. Acute hypoxic respiratory failure with community-acquired pneumonia. 3. Acute diastolic congestive heart failure. 4. New onset atrial fibrillation. 5. Severe obstructive sleep apnea. 6. Strep bacteremia with sepsis. 7. Acute renal insufficiency. 8. Hypertension. 9. History of tobacco abuse. PLAN: From a postadmission physician evaluation perspective, there are no relevant changes since the preadmission screening. See the above review of prior medical and functional conditions and comorbidities. As far as risk of complications, the patient has multiple medical comorbidities as noted. Initial plan of care involves the interdisciplinary acute inpatient rehabilitation [address] [address] HISTORY AND PHYSICAL Name: ODELL ZARAGOZA Room #: 515-P ADM IN [facility].#: [id number] Admission: 11/26/19 Attend Phys: Agustín Carrera MD Discharge: Date of : 45 Report #: [id number] program. Measurable functional goals would be for him to hopefully wean off the oxygen and to try to improve his strength and endurance and ambulate further distances. Prognosis is reasonably good. Potential barriers would include his multiple medical comorbidities and decreased functional status. The patient meets diagnostic criteria for an acute in-hospital inpatient rehabilitation stay. He meets the medical necessity criteria and we will have the senior management consultant physicians continue to follow. He does have the tolerance for an acute inpatient rehab block and has appropriate discharge goals back to the home setting with his . <ELECTRONICALLY SIGNED> By: Agustín Carrera MD 12/03/19 1154 0944 0958 Agustín Carrera MD /nt
[2019-12-03 13:36] LABS: CALCIUM 8.8 mg/dL (8.5-10.1); CREATININE 1.5 mg/dL (0.7-1.3); POTASSIUM 4.3 mmol/L (3.5-5.1)
--- NOTE | 2019-12-03 16:27 | NUR ---
ASSUMED CARE AT 0700. PT COMPLAINED OF DIFFICULTY BREATHING AND RT AT BEDSIDE AND GIVING A CPT TREATMENT AND IS PUT ON 8L 0XYGEN, SAT 93%. PT ALSO REPORTED LACK OF SLEEP LAST NIGHT DESPITE GETTING MELATONIN. PT DENIED ANY PAIN AND IS FEELING TIRED THIS MORNING AND HOPING NOT TO GET ANY THERAPY TODAY. AFTER RECEIVING HIS MUCINEX AND LASIX, PT IS FEELING MUCH BETTER. VOIDING ADEQUATELY. BLE PITTING EDEMA, LEGS ELEVATED AND MARYCARMEN WRAP APPLIED. 02 REDUCED TO 6L AND SAT AT 97%. PT MANAGED TO PARTICIPATE IN THERAPY. IV ABX GIVEN. CONT TO MONITOR.
[2019-12-03 19:55] VITALS: BP 97/35
--- NOTE | 2019-12-04 05:08 | NUR ---
Patient is alert and oriented x3 to 4, wth clear but slow speech and no signs of confusion and/or distress. He was compliant with medications, interacted with staff before retiring to bed, at what point RT came and placed him on his BiPAP machine for the night.
[2019-12-04 07:32] VITALS: BP 117/46
[2019-12-04 08:34] VITALS: BP 117/46
--- NOTE | 2019-12-04 16:17 | NUR ---
ASSUMED CARE [id number]. PT HAD A BETTER NIGHT AND SLEPT WELL. BREATHING IS BETTER AND ABLE TO PARTICIPATE WITH THERAPY BETTER TODAY. DIURESING ADEQUATELY. EDEMA IS IMPROVING IN BOTH LEGS. MARYCARMEN WRAP IN PLACE AND LEGS ELEVATED. PARTICIPATING IN THERAPY. CONT TO MONITOR.
[2019-12-04 20:10] VITALS: BP 104/43
--- NOTE | 2019-12-05 05:39 | NUR ---
Haris is alert and oriented x4 and could not resist informing the night staff he was in a good mood especially after having a good night's rest on Friday night. He was compliant with his medication, and was helped into bed, before his christina wraps were unwrapped from both bilateral lower extremities and RT place his BiPAP machine for the night.
[2019-12-05 07:16] VITALS: BP 103/43
[2019-12-05 08:04] LABS: ABSOLUTE NEUTROPHILS 18.1 thou/uL (1.4-8.2); BASOPHILS 0.1 % (0.0-2.0); EOSINOPHILS 0.1 % (0.0-3.0); HEMATOCRIT 30.2 % (42.0-52.0); HEMOGLOBIN 10.1 gm/dL (14.0-18.0); LYMPHOCYTES 1.9 % (24.0-44.0); MCH 33.7 pg (26.0-34.0); MCHC 33.6 g/dL (28.0-37.0); MCV 100.4 fL (80.0-100.0); MONOCYTES 1.5 % (1.0-8.0); PLATELET COUNT 107 thou/uL (150-400); POLYS 96.4 % (36.0-66.0); RBC 3.01 mil/uL (4.50-6.00); RDW 14.1 % (10.5-14.5); WBC 18.8 thou/uL (4.0-11.0)
[2019-12-05 08:06] LABS: CALCIUM 8.6 mg/dL (8.5-10.1); CREATININE 1.3 mg/dL (0.7-1.3); POTASSIUM 3.1 mmol/L (3.5-5.1)
--- NOTE | 2019-12-05 10:35 | NUR ---
ASSUMED CARE AT 0700. PATIENT IS ALERT AND ORIENTED X4. PATIENT HAS BPAP ON AND INPLACE. REMOVED. LUNGS ARE CLEAR. 02 AT 6L/NC. UP IN THE CHAIR FOR MEALS. FEET ELEVATED AND WRAPPED WITH MARYCARMEN. PATIENT CONTINUES TO HAVE +3 EDEMA IN HIS LOWER EXTREMITES. MIDLINE PATENT AND INTACT IN HIS RIGHT AC. PATIENT CONTINUE ON RESPIRATORY TX. FALL AND SAFETY PROTOCOLS IN PLACE. DENIES PAIN. CONTINUES TO PROGRESS SLOWLY TOWARDS D/C GOALS. WILL CONTINUE TO MONITER.
[2019-12-05 20:39] VITALS: BP 108/40
[2019-12-06 07:28] VITALS: BP 113/49
--- NOTE | 2019-12-06 09:00 | NUR ---
ASSUMED CARE AT 0700. PT HAD AN UNEVENTFUL NIGHT AND SLEPT FAIRLY WELL WITH THE BIPAP MACHINE. STILL ON 6L VIA NC AND SAT AT 95%. PT IS FEELING MUCH BETTER AND LUNGS ARE SOUNDING CLEARER. ON IV LASIX BID AND DIURESING WELL. BOTH LE EDEMA WITH MARYCARMEN WRAP AND LEGS ELEVATED WHILE IN CHAIR. PT HAD COUPLE OF BM TODAY. NOTED A SKIN TEAR AND WOUND CARE CONSULTED WITH ORDERS FOR ZGUARD TO AREA TID. PARTICIPATING IN THERAPY AND PROGRESSING. WILL CONT TO MONITOR.
--- NOTE | 2019-12-06 13:10 | NUR ---
Nutrition: pt admitted with acute exacerbation of CHF and seen due to LOS on rehab unit. Current weight up approx. 4# from reported usual. 3+ edema lower extremities and on lasix. Pt/ familiar with low sodium diet and have no questions. PO intake is good 75-100% of meals and pt has requested ensure BID. Pt requests to continue although likely not needed considering current intake. Not presently on a fluid restriction. On folate supplement for deficiency. Consider low nutrition risk.
--- NOTE | 2019-12-06 13:28 | NUR ---
WOUND CARE CONSULT; THE PATIENT HAS BILATEAL AREAS OF PRESSURE TO THE BUTTOCKS. UNSTAGEABLE AT THIS MOMENT, COVERED WITH NON VAIBLE TISSUE. THE PATIENT CAN AMBULATE BUT REFUSES TO USE THE BED. THE PATIENT IS UP IN THE CHAIN ALL THE TIME. DISCUSSED WITH THE PATIENT AND SPOUSE RE; PURCHASING A PRESSURE REDUCTION SEAT CUSHION FOR HOME. GAVE THEM RESOURCES TO DO THIS. RECOMMENDATIONS; 1-ENCOURAGED OFFLOADING 2-APPLY ZGUARD TID 3-REPOSTION MUCH POSSIBLE.
[2019-12-06 20:00] VITALS: BP 110/50
--- NOTE | 2019-12-07 04:16 | NUR ---
ASSESSMENT: PT REMAIN ALERT AND ORIENT TIMES THREE. DENIES PAIN. PICC LINE INTACT AND PATENT. PT REQUESTED BIPAP MACHINE AT 2230, TOLERATING WELL. VSS, AFEBRILE. PT ON 6L DURING THE DAY PER NC. LE PITTING EDEMAN NOTED, MARYCARMEN WRAPS OFF THIS SHIFT. PT DID REQUEST MEDS ORDERED. SLOW PROGRESS TOWARDS DC GOALS, WILL CONTINUE TO MONITOR.
[2019-12-07 08:16] VITALS: BP 108/43
--- NOTE | 2019-12-07 09:26 | NUR ---
0700 assumed care of patient. 0920 patient in bathroom. at bedside at this time. VS- BP 103/43 P 75 RESP 20 TEMP 98.2 O2 SATS 95% WITH 6L O2 NC . MEDICATIONS GIVEN WITH APPLESAUCE WITHOUT DIFFICULTY. PATIENT WORKING WITH PT AT THIS TIME.
--- NOTE | 2019-12-07 13:35 | NUR ---
team meeting, reccommendation: hr been up to 140, possible ekg today. need to turn q 2 to off load coccxy. still needing medical and physical assitance. changed to 12/13/2019, he making progress so cont therapy. to be able to he him home. will need fww. will need bipap. currently on iv abx, going to need to see if what id is ok with change to po. hh ( pt, ot, st, nursing, and sw). going to get bath bench. will cont following as needed for dc needs.
--- NOTE | 2019-12-07 14:31 | EKG ---
[facility] [place] [address] ELECTROCARDIOGRAM REPORT Name: ODELL ZARAGOZA Jonathan Room #: 515- ADM IN M.R.#: [id number] Admission: 11/26/19 Attend Phys: Agustín Carrera MD Discharge: Date of : 45 Report #: [id number] THIS REPORT FOR: cc: JULISA Gutiérrez family physician/PCP JULISA - Marla family physician/PCP Kalpesh Hines MD [facility] THIS REPORT FOR: //name// [facility] Test Date: 2019-12-07 Test Time: 13:50:52 Pat Name: ODELL ZARAGOZA Department: Room: [facility] Gender: M 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 : 1945 Requested By: Lani Thomas Order Number: [id number] MD: Kalpesh Hines Measurements Intervals [place] Rate: 87 P: 63 NE: 162 QRS: 121 QRSD: 94 T: 47 QT: 385 QTc: 463 Interpretive Statements Sinus rhythm Atrial premature complex Left atrial enlargement Right axis deviation Compared to ECG 12/01/2019 09:00:29 Atrial premature complex(es) now present Right-axis deviation now present Ventricular premature complex(es) no longer present T-wave abnormality no longer present Electronically Signed On 12-07-2019 14:31:08 CDT by Kalpesh Hines [email or web address] <ELECTRONICALLY SIGNED> By: Kalpesh Hines MD, FACC 12/07/19 1431 1350 1350 Kalpesh Hines MD, FAC /EPI
--- NOTE | 2019-12-07 17:14 | NUR ---
pt eating supper, feeling tired, hr in 120's following lasix. noted HR is irregular and rapid. Pt has own pulse oximeter and is monitoring. he is not short of air, and is able to talk and eat without difficulty.
[2019-12-07 19:45] VITALS: BP 109/37
--- NOTE | 2019-12-07 20:09 | NUR ---
0700 ASSUMED CARE OF PATIENT. PATIENT NOTED WITH PITTING EDEMA 3+ TO LE. PATIENT DENIES PAIN AT THAT TIME. PATIENT SITTING IN CHAIR. LS CLEAR, BS ACTIVE. LEGS WRAPPED AT 1040 BILAT WITH MARYCARMEN WRAPS. PICC LINE TO RIGHT FA. PATIENT GIVEN IV LASIX AT 1030AM, AROUND NOON PT NOTIFIED DISPERSION MIXER OF HR 140'S. AFTER [address] HYDE NOTIFIED VS BP-126/48 P- 97. AT 1225 P- 75-138 EKG ORDERED. PATIENT HR STEADY AT 80'S AT 1300. 1705 PATIENT C/O INCREASED HR. DISPERSION MIXER CHECKED HR WITH HR RANGING FROM 120-140. DR HYDE CALLED AGAIN, RECIEVED DR SPAIN. HR DOWN TO 80'S 30 MIN LATER AFTER GIVING CARDEZEM 120MG PO X1 PER DR HYDE. PATIENT RESTING IN CHAIR AT BEDSIDE MOST OF THE DAY. REPORT GIVEN TO ONCOMING SHIFT.
--- NOTE | 2019-12-08 04:22 | NUR ---
PATIENT TURNING SIDE TO SIDE WHETHER IN BED OR WITH WEDGES WHEN IN CHAIR. TOLERATED 4 HOURS OF BIPAP WITHOUT SLEEPING MUCH AND HAS BEEN UP IN CHAIR AGAIN SINCE 3 AM. RIGHT UPPER ARM PICC LINE PATENT FOR ANTIBIOTICS AND BLOOD DRAW. APPRECIATES [employer] FOR WHOLE MEDS.
[2019-12-08 05:49] LABS: ABSOLUTE NEUTROPHILS 13.9 thou/uL (1.4-8.2); BASOPHILS 0.1 % (0.0-2.0); EOSINOPHILS 1.4 % (0.0-3.0); HEMOGLOBIN 10.2 gm/dL (14.0-18.0); LYMPHOCYTES 2.4 % (24.0-44.0); MCH 33.7 pg (26.0-34.0); MCV 102.1 fL (80.0-100.0); MONOCYTES 1.7 % (1.0-8.0); PLATELET COUNT 107 thou/uL (150-400); POLYS 94.4 % (36.0-66.0); RBC 3.03 mil/uL (4.50-6.00); RDW 15.5 % (10.5-14.5); WBC 14.7 thou/uL (4.0-11.0)
[2019-12-08 06:01] LABS: CALCIUM 8.9 mg/dL (8.5-10.1); CREATININE 1.3 mg/dL (0.7-1.3); MAGNESIUM 2.1 mg/dL (1.8-2.4); POTASSIUM 3.6 mmol/L (3.5-5.1)
[2019-12-08 13:45] VITALS: BP 101/42
--- NOTE | 2019-12-08 13:47 | NUR ---
FAXED REFERRAL TO A HH SPOKE WITH ANNIE IN INTAKE THEY CAN ACCPEPT AT DISCHARGE ON 12/12.
[2019-12-08 19:45] VITALS: BP 113/48
--- NOTE | 2019-12-08 19:45 | NUR ---
ASKING FOR PM MEDS AND TO GO TO BED BECAUSE OF BEING TIRED.
--- NOTE | 2019-12-08 19:54 | NUR ---
ASSUMED CARE OF PT AT 0700. PT IS A&OX4 AND VITAL SIGNS ARE STABLE. WRAPS TO BLE PLACE BY NURSING. PICC TO RIGHT UPPER ARM IN PLACE. PT DENIES PAIN AND PARTICIPATED IN THERAPIES. AT BEDSIDE THIS SHIFT. REFUSED WOUND CARE THIS SHIFT FROM NURSING. FALL PRECAUTIONS IN PLACE AND NURSING WILL CONTINUE TO MONITOR.
--- NOTE | 2019-12-08 22:00 | NUR ---
BACK IN CHAIR BY REQUEST, APPRECIATES FOLDED BATH BLANKET UNDER WAFFLE CUSHION WHICH IS UNDER HIS RIGHT HIP. SOA, WILL TRY BIPAP TO HELP HIM BREATHE
--- NOTE | 2019-12-09 01:16 | NUR ---
TOLERATING BIPAP FOR NOW, BUT REFUSING ANY REPOSITIONING IN CHAIR.
--- NOTE | 2019-12-09 01:39 | NUR ---
BIPAP OFF, O2 PNC ON PER PATIENT REQUEST. TAKING SIPS OF COLD WATER SPARINGLY, O2 SAT= 92%, WAS 95% ON BIPAP. REFUSES REPOSITIONING IN CHAIR, STILL HAS FOLDED BATH BLANKET UNDER RIGHT BUTTOCK AND WAFFLE CUSHION UNDER BOTH BUTTOCKS ON TOP OF IT
--- NOTE | 2019-12-09 01:52 | NUR ---
BACK ON BIPAP
--- NOTE | 2019-12-09 03:01 | NUR ---
BIPAP BACK ON
--- NOTE | 2019-12-09 03:45 | NUR ---
BIPAP OFF NOW FOR THE REST OF THE NIGHT. INSISTS ON STAYING IN CHAIR, REFUSING TO TURN. SHARRI CUSHION ADJUSTED SLIGHTLY WHEN HE ASKED TO HAVE HIS PILLOWS ADJUSTED, FLUFFED, MOVED. O2 ON AT 7L WITH LEGS OF CHAIR ELEVATED
--- NOTE | 2019-12-09 04:13 | NUR ---
BIPAP BACK ON PER PATIENT REQUEST
[2019-12-09 08:18] VITALS: BP 115/44
[2019-12-09 09:24] LABS: BE(vivo) 5.1 mmol/L (-2 to +3); PO2 66.8 mmHg (80.0-100.0)
[2019-12-09 09:25] LABS: PCO2 66.2 mmHg (35.0-45.0); pH 7.316 (7.360-7.450)
[2019-12-09] MEDS ORDERED: IPRATROPIU0.2 MG/1 M INH ×2 (09:59)
[2019-12-09] MEDS ORDERED: SOLU-MEDRO125 MG/23 IV PUSH (09:59)
[2019-12-09] MEDS ORDERED: MUCINEX600 MG PO (09:59)
[2019-12-09] MEDS ORDERED: POTASSIUM20 PO (09:59)
[2019-12-09] MEDS ORDERED: FOLIC ACID1 MG PO (09:59)
--- NOTE | 2019-12-09 10:09 | 2DMMODE ---
[facility] [place] [address] 2 D/M-MODE ECHOCARDIOGRAM Name: ODELL ZARAGOZA Room #: 515-P ADM IN M.R.#: [id number] Admission: 11/26/19 Attend Phys: Agustín Carrera MD Discharge: Date of : 45 Report #: [id number] THIS REPORT FOR: cc: JULISA - No family physician/PCP FAM - No family physician/PCP Kalpesh Hines MD [facility] ~ APPROVED REPORT Study performed: 12/09/2019 09:25:46 EXAM: Limited 2D, Doppler, and color-flow Echocardiogram Patient Location: In-Patient Room #: 515 Status: routine BSA: 2.02 HR: 70 bpm BP: 115/44 mmHg Rhythm: NSR Other Information Study Quality: Adequate Technically limited study due to exam done with patient in recliner on BiPAP.. Indications Limited follow up echo for possible AV endocarditis. Aortic Valve AI Vmax: 4.33 m/s AI [place]: 10.23 m/s2 AI PHT: 122.71 ms Tricuspid Valve TR Peak Elver.: 3.69 m/s RAP Estimate: 10.00 mmHg TR Peak Gr.: 55.00 mmHg PA Pressure: 65.00 mmHg Left Ventricle There is normal LV segmental wall motion. Left ventricular systolic function is normal. LVEF is 55%. Right Ventricle The right ventricle is normal size. The right ventricular systolic function is normal. [facility] [address] [place] [address] 2 D/M-MODE ECHOCARDIOGRAM Name: ODELL ZARAGOZA Room #: 515-P ADM IN M.R.#: [id number] Admission: 11/26/19 Attend Phys: Agustín Carrera, Discharge: Date of : 45 Report #: [id number] [employer] The left atrium size is normal. The right atrium size is normal. Aortic Valve Findings are suspicious for AV endocarditis. Moderate aortic regurgitation. Mitral Valve The mitral valve is normal in structure. Mild mitral regurgitation. Tricuspid Valve The tricuspid valve is normal in structure. Mild to moderate tricuspid regurgitation. Estimated PAP is 60-65mmHg. Great Vessels IVC is normal in size and collapses <50% with inspiration. Pericardium There is no pericardial effusion. <Conclusion> Normal left atrial size, wall thickness and the systolic function Ejection fraction estimated 55% Tricuspid aortic valve with mild calcification. Small echogenicity detected, hard to see but probably around 0.2 cm, suspicious for vegetation. Moderate aortic valve insufficiency Mild and posterior directed mitral valve insufficiency Mild to moderate tricuspid valve insufficiency Severe pulmonary hypertension PA pressure systolic estimated at 6065 mmHg <ELECTRONICALLY SIGNED> By: Kalpesh Hines MD, FACC 12/09/191008 08 1009 Kalpesh Hines MD, FACC /INF
--- NOTE | 2019-12-09 11:25 | NUR ---
ASSUMED CARE OF PT AT 0700. PT IS ALERT AND LETHARGIC. PT REPORTS RESTLESS NIGHT. PT UNABLE TO MAINTAIN O2 SAT WITHOUT BIPAP, O2 SATS BETWEEN 78-85% WHEN ON 6L O2 VIA NC WITHIN 1-2 MINUTES. INCREASED EDEMA NOTED FROM YESTERDAY. BLE WRAPPED WITH MARYCARMEN WRAPS. PROVIDERS AWARE OF CHANGE IN CONDITION. 100MG LASIX TOTAL GIVEN IV, 125MG SOLU-MEDROL ADMINISTERED IV, ANDERSEN CATHETER PLACED FOR I&OS, ABGS OBTAINED WITH CRITICAL VALUES REPORTED. PROVIDERS NOTIFIED OF CRITICAL RESULTS AND ORDER FOR STAT TRANSFER TO ICU OBTAINED. CALLED REPORT TO ICU NURSE AND PT TRANSFERED TO ICU ON BIPAP WITH RESPIRATORY THERAPIST AT 1000. AT BEDSIDE AND WENT TO ICU WITH PT.
--- NOTE | 2019-12-09 15:07 | HC ---
[facility] [place] [address] CONSULTATION Name: ODELL ZARAGOZA Room #: 515-P [facility] IN M.R.#: [id number] Admission: 11/26/19 Attend Phys: Agustín Carrera MD Discharge: 12/09/19 Date of : 45 Report #: [id number] THIS REPORT FOR: cc: FAM - No family physician/PCP FAM - No family physician/PCP Philip Kelly MD ~ DATE OF SERVICE: 12/06/2019 CHIEF COMPLAINT: Gluteal pressure ulceration. HISTORY OF PRESENT ILLNESS: This is a 74-year-old male patient who I have been asked to see regarding a gluteal pressure ulceration. He is on the rehab unit. He was recently diagnosed with sepsis and acute respiratory failure and newly diagnosed atrial fibrillation. He has been improving steadily. He is, however, spending a lot of time sitting in the chair and has developed some breakdown on his buttocks and I have been asked to see him in this regard. The patient denies any significant pain associated with this. His is at the bedside as well. PAST MEDICAL HISTORY: Positive for general debility, acute hypoxic respiratory failure, acute diastolic congestive heart failure, new onset atrial fibrillation, severe obstructive sleep apnea, acute kidney injury, hypertension and tobacco abuse. MEDICATIONS: At this time include ipratropium bromide, levalbuterol, racemic epinephrine, Eliquis, Pacerone, diltiazem, Tylenol, Pulmicort, Pepcid, melatonin, prednisone, vancomycin, and Lasix. ALLERGIES: PENICILLIN. SOCIAL HISTORY: Positive for smoking cigarettes. Negative for significant alcohol use. FAMILY HISTORY: Noncontributory. REVIEW OF SYSTEMS: CONSTITUTIONAL: The patient denies fever, chills or weight loss. NEUROLOGICAL: The patient denies focal weakness, numbness or tingling. EYES: The patient denies visual changes, redness, or drainage. ENT: The patient denies earache, nasal drainage or sore throat. CARDIOVASCULAR: The patient denies chest pain or palpitations or diaphoresis. PULMONARY: The patient does complain of cough and shortness of breath as well as sleep apnea, needing to use a CPAP at night. GASTROINTESTINAL: The patient denies nausea, vomiting or abdominal pain. [address] [address] CONSULTATION Name: ODELL ZARAGOZA Room #: 515-P [facility] IN [facility].#: [id number] Admission: 11/26/19 Attend Phys: Agustín Carrera MD Discharge: 12/09/19 Date of : 45 Report #: [id number] ORTHOPEDIC: The patient denies pain or swelling of the extremities. He is aware of the ulcerations on his buttocks. Other systems in a 14-point review of systems are negative. PHYSICAL EXAMINATION: VITAL SIGNS: At this time include temperature 36.6, pulse 80, respiratory rate 16, blood pressure 113/49. GENERAL: This is a chronically ill-appearing male patient who appears to be in minimal distress. HEENT: Head normocephalic. Nose and throat clear. NECK: Supple. LUNGS: Clear. HEART: Irregular without murmur. ABDOMEN: Soft and bowel sounds are present. EXTREMITIES: Examination of the gluteal region demonstrates stage 3 pressure ulcerations to the buttocks bilaterally. They are relatively shallow. No deep structure or exposure and no evidence of infection, no drainage, no odor. CLINICAL IMPRESSION: 1. Stage 3 pressure ulcerations to the buttocks. 2. Mild yeast dermatitis. 3. Congestive heart failure. 4. Acute hypoxemic respiratory failure. 5. New onset atrial fibrillation. RECOMMENDATIONS: At this point in time, we will recommend zinc oxide and antifungal barrier cream to be applied to the area twice daily and as needed. We will recommend an air filled waffle cushion for his chair. He will need low air loss pump in his bed and then q.2 hour turning and positioning to offload using wedges to keep him off midline every 2 hours. I have discussed this recommendation in great detail with the patient and his ; they are agreeable to current plan. I appreciate being asked to see the patient in consultation. <ELECTRONICALLY SIGNED> By: Philip Kelly MD 12/09/19 1507 1004 1109 Philip Kelly MD /nt
== END 2019-12-09 10:38 | disposition short-term general hospital (02) | DRG 947 ==
PROVIDERS: Internal Medicine; Nurse Practitioner; Nurse Practitioner Family; Specialist; ADMIT Physical Medicine & Rehabilitation; ATTEND Physical Medicine & Rehabilitation
DX: R53.81 Other malaise (principal); A40.9 Streptococcal sepsis, unspecified; I33.0 Acute and subacute infective endocarditis; I50.33 Acute on chronic diastolic (congestive) heart failure; J96.21 Acute and chronic respiratory failure with hypoxia; E43 Unspecified severe protein-calorie malnutrition; I48.19 Other persistent atrial fibrillation; N17.9 Acute kidney failure, unspecified; J44.9 Chronic obstructive pulmonary disease, unspecified; I10 Essential (primary) hypertension; D64.9 Anemia, unspecified; G47.33 Obstructive sleep apnea (adult) (pediatric); Z87.891 Personal history of nicotine dependence; I11.0 Hypertensive heart disease with heart failure; E78.5 Hyperlipidemia, unspecified
CPT/HCPCS: 10112; 27000

== ENCOUNTER 2019-12-09 10:36 | Inpatient (IN) | payer OTHER ==
[~2019-12-09] VITALS: Ht 175.3 cm; Wt 101.1 kg
[2019-12-09] VITALS (19 sets, daily range): BP systolic 98–123; BP diastolic 26–38
--- NOTE | ~2019-12-09 | HC ---
[facility] [place] [address] CONSULTATION Name: ODELL ZARAGOZA Room #: 242-P [facility] IN ..#: [id number] Admission: 12/09/19 Attend Phys: Al Cramer MD Discharge: 12/22/19 Date of : 45 Report #: [id number] THIS REPORT FOR: cc: JULISA - Marla family physician/PCP JULISA - Marla family physician/PCP Clary Raines MD ~ DATE OF SERVICE: 12/10/2019 REASON FOR CONSULTATION: Fluid overload. HISTORY OF PRESENT ILLNESS: This is a 74-year-old with history of AFib, diastolic heart failure. He was initially admitted to [facility] in the initial part or in the early part of November with respiratory failure. He was diagnosed to have pneumonia, potential endocarditis. He was started on appropriate therapy. This is to continue with antibiotic for his aortic valve endocarditis, other aspects of care. Apparently, the patient has been getting fluid overloaded in the rehabilitation floor until yesterday when I was called to evaluate him because of significant worsening of his breathing. He was initiated on IV Lasix drip and was moved down to the ICU for further evaluation and management. I was consulted to manage his fluid overload. He has close to normal creatinine values anywhere from 1-1.3. PAST MEDICAL HISTORY: Extensive and includes the followin. Diastolic heart failure. 2. Hypertension. 3. Hyperlipidemia. 4. AFib. 5. Recent acute respiratory failure. ALLERGIES: PENICILLIN. PAST SURGICAL HISTORY: Tonsillectomy, adenoidectomy, cataract extraction. FAMILY HISTORY: CVA. SOCIAL HISTORY: Denies drug or alcohol abuse. REVIEW OF SYSTEMS: GENERAL: Significant for weakness. CARDIOVASCULAR: Significant for shortness of breath. PULMONARY: Significant for shortness of breath and cough. GASTROINTESTINAL: No nausea or vomiting. GENITOURINARY: No frequency, no urgency. LOWER EXTREMITIES AND MUSCULOSKELETAL: As per the history of present illness [facility] [address] [place] [address] CONSULTATION Name: ODELL ZARAGOZA Room #: 242-P [facility]#: [id number] Admission: 12/09/19 Attend Phys: Al Cramer MD Discharge: 12/22/19 Date of : 45 Report #: [id number] with extensive edema. PHYSICAL EXAMINATION: GENERAL: Alert, oriented, in no apparent distress. VITAL SIGNS: Most recent blood pressure is 106/22. HEAD AND NECK: No jugular venous distention. CHEST: No crackles. CARDIOVASCULAR: No rub. ABDOMEN: Soft. LOWER EXTREMITIES: Extensive edema. LABORATORY VALUES: From today revealed sodium of 147, potassium of 3.5, BUN of 49, creatinine of 1.3. ASSESSMENT AND PLAN: 1. Fluid overload. 2. Atrial fibrillation. 3. Endocarditis. 4. We will continue with the diuresis 1 more day. 5. Switch to oral torsemide in the morning. 6. Antibiotic for his endocarditis by ID. 7. Salt restriction. 8. Daily weight. 9. Watch electrolytes. 10. Pneumonia coverage. 11. We will continue to follow during his hospital stay. By: 0811 1308 Clary Raines MD /nt
--- NOTE | 2019-12-09 10:25 | NUR ---
PATIENT ADMITTED TO ICU ROOM 242 FROM REHAB UNIT VIA BED WITH BIPAP, SETTINGS FIO2 65% RATE OF 14 AND 14/5. PATIENT IS RESPONSIVE BUT WEAK. ATTACHED TO CHIEF CONSTRUCTION INSPECTOR AND O2 SAT MONITOR. BP MONITORED PER PROTOCOL.
[~2019-12-09 10:36] MED LIST changes: +DILTIAZEM 24HR120 M1 PO; +ELIQUIS5 MG PO; +FOLIC ACID1 MG PO; +IPRATROPIU0.2 MG/1 M INH; +LASIX 40 MG TAB40 M2 PO; +LEVALBUTER1.25 MG/0. INH; +MELATONIN5 M1 PO; +MUCINEX600 MG PO; +PACERONE 200 M200 M1 PO; +PEPCID20 MG PO; +POTASSIUM20 PO; +PREDNISONE 10 M10 M1 PO; +PULMICORT0.5 MG/22 INH; +S2 RACEPINEPHR1 EACH INH; +SOLU-MEDRO125 MG/23 IV PUSH; +TYLENOL325 MG PO; +VANCOMYCIN1 GM/2002 IV
--- NOTE | 2019-12-09 11:00 | NUR ---
DR BROWNING NOTIFIED OF MEAN ARTERIAL PRESSURE IN THE 50'S, NO NEW ORDERS.
--- NOTE | 2019-12-09 13:17 | NUR ---
chart review. pt dc from acute rehab to icu today rt medical changes. pt cell # [phone]. cm worked with pt and malena up on acute rehab. and phillip live in house. has [address] of stair about 13 up to bedrooms and bathrooms. independent prior to hospital. no dme. no past hh, has picked vna when dc home. he is still requiring o2 and bipap, has not needed oxygen and bipap. there is 1/2 bath on lower level where he could stay if needed to. was manage own medication and driving a vehicle. pcp dr dali harris. support from . will cont following as needed for dc needs.
[2019-12-09 15:55] LABS: BE(vivo) 6.9 mmol/L (-2 to +3); HCO3 32.6 mmol/L (22.0-26.0); PCO2 51.5 mmHg (35.0-45.0); PO2 58.7 mmHg (80.0-100.0); pH 7.419 (7.360-7.450); sO2 90.5 % (92.0-98.0)
--- NOTE | 2019-12-09 16:30 | NUR ---
ABG'S DRAWN AND PLACED ON 8L/NC HIGH FLOW. C/O SOB AND O2 SAT DECREASED TO 85%. PLACED BACK ON BIPAP AND FIO2 INCREASED TO 70%. ABG RESULTS CALLED TO DR DASILVA AND UPDATED ON PATIENT'S RESP STATUS. NO NEW ORDERS.
--- NOTE | 2019-12-09 18:45 | NUR ---
STATUS UNCHANGED, MONITOR NSR WITH PAC'S.
[2019-12-09 20:27] LABS: HEMATOCRIT 33.5 % (42.0-52.0); MCH 33.5 pg (26.0-34.0); MCHC 32.8 g/dL (28.0-37.0); MCV 102.3 fL (80.0-100.0); RBC 3.28 mil/uL (4.50-6.00); RDW 16.5 % (10.5-14.5); WBC 12.6 thou/uL (4.0-11.0)
[2019-12-09 20:37] LABS: CALCIUM 8.7 mg/dL (8.5-10.1); CREATININE 1.3 mg/dL (0.7-1.3); POTASSIUM 3.9 mmol/L (3.5-5.1)
--- NOTE | 2019-12-09 22:29 | NUR ---
1954 - PT INTERMITTENTLY IN NSR AND AFIB RATE 120'S. EKG TAKEN. 2019 - FERNANDEZ CHEMISTRY SPECIALIST NOTIFIED. LABS ORDERED. 2029 - DR. ELISE WITH CARDIOLOGY NOTIFIED. AMIO ORDER CHANGED FROM PO DAILY TO PO BID, REFER TO EMAR. PT HEMODYNAMICALLY STABLE AT THIS TIME. WILL CONTINUE TO MONITOR PT CLOSELY.
[2019-12-10] VITALS (27 sets, daily range): BP systolic 91–112; BP diastolic 22–34
[2019-12-10 04:13] LABS: BE(vivo) 7.7 mmol/L (-2 to +3); PCO2 38.6 mmHg (35.0-45.0); PO2 63.1 mmHg (80.0-100.0); pH 7.523 (7.360-7.450); sO2 94.2 % (92.0-98.0)
[2019-12-10 04:36] LABS: ALBUMIN 1.4 g/dL (3.4-5.0); CALCIUM 8.5 mg/dL (8.5-10.1); CREATININE 1.3 mg/dL (0.7-1.3); PHOSPHORUS 3.3 mg/dL (2.5-4.9); POTASSIUM 3.5 mmol/L (3.5-5.1)
[2019-12-10 05:44] LABS: ABSOLUTE NEUTROPHILS 9.7 thou/uL (1.4-8.2); BASOPHILS 0.2 % (0.0-2.0); HEMATOCRIT 31.3 % (42.0-52.0); HEMOGLOBIN 10.4 gm/dL (14.0-18.0); LYMPHOCYTES 1.1 % (24.0-44.0); MCH 34.2 pg (26.0-34.0); MCHC 33.3 g/dL (28.0-37.0); MCV 102.8 fL (80.0-100.0); MONOCYTES 1.5 % (1.0-8.0); PLATELET COUNT 130 thou/uL (150-400); POLYS 97.2 % (36.0-66.0); RBC 3.04 mil/uL (4.50-6.00); RDW 16.5 % (10.5-14.5)
--- NOTE | 2019-12-10 07:00 | NUR ---
ASSUMMED CARE FROM NIGHT NURSE DAVI GARCES. PATIENT IS RESTING QUIETLY ON BIPAP.
--- NOTE | 2019-12-10 07:42 | EKG ---
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: FRANKIE : 1945 Requested By: Al Cramer Order Number: [id number] MD: Kalpesh Hines Measurements Intervals [place] Rate: 118 P: [place]: QRS: 140 QRSD: 96 T: 54 QT: 407 QTc: 571 Interpretive Statements Atrial fibrillation Right axis deviation Borderline low voltage, extremity leads Minimal ST depression Prolonged QT interval Electronically Signed On 12-10-2019 7:41:50 CDT by Kalpehs Hines [email or web address] <ELECTRONICALLY SIGNED> By: Kalpesh Hines MD, FACC 12/10/19 0741 54 54 Kalpesh Hines MD, [facility] /EPI
--- NOTE | 2019-12-10 08:00 | NUR ---
PATIENT PLACED ON 10L/HFNC, DESATED INTO THE UPPER 80'S AFTER APPROXIMATELY 10 MINS. REQUESTED TO BE PLACED BACK ON BIPAP. NATIONAL FACILITIES MANAGER AND DR BROWNING AWARE OF PATIENT'S BP AND MAP. NO NEW ORDERS.
--- NOTE | 2019-12-10 09:07 | NUR ---
Nutrition: Pt transferred from rehab unit to ICU with respiratory distress, CHF, ARF. Pt assessed 12/05. Usual intake is good, was eating 75-100% of meals daily with ensure BID requested. 1500 mL Fluid restriction added so will change one ensure to magic cup. Discussed with nsg/pt. Currently on bipap and desats quickly without it. Some confusion regarding diet order. Pureed was entered however pt has been on heart healthy with no consistency modification. Discussed with nsg. Weights up to 194# yesterday. UBW 183#, current 185#. + edema on lasix drip. Bilateral pressure ulcer noted to buttocks. Both pt and previously voiced understanding of low Na+ diet to RD at last eval. Will follow for ability to eat considering current need BIPAP. Low nutrition risk.
[2019-12-10 09:41] LABS: % SATURATION 27 % (20-39); IRON 59 ug/dL (65-175); TIBC 217 ug/dL (250-450)
[2019-12-10 10:15] LABS: TSH 1.007 uIU/mL (0.358-3.740)
[2019-12-10 13:47] LABS: URINE BILIRUBIN NEGATIVE (Negative); URINE BLOOD 1+ (Negative); URINE CLARITY CLEAR; URINE COLOR YELLOW; URINE GLUCOSE-RANDOM* NEGATIVE (Negative); URINE KETONES NEGATIVE (Negative); URINE LEUKOCYTES-REFLEX NEGATIVE (Negative); URINE NITRITE-REFLEX NEGATIVE (Negative); URINE PROTEIN (DIPSTICK) NEGATIVE (Negative); URINE UROBILINOGEN 0.2 E.U./dl (0.2-1.0)
--- NOTE | 2019-12-10 13:58 | NUR ---
chart review. phillip cont to require use of bipap. malena cont to visit. no anticipated dc over the weekend. will cont following as needed for dc needs.
[2019-12-10 14:03] LABS: HYALINE CASTS 0-3 Few /LPF (None Seen)
[2019-12-10 14:04] LABS: SQUAMOUS 0-3 Few /LPF (0-3); URINE WBC-REFLEX 0-5 Rare /HPF (0-5)
[2019-12-10 14:05] LABS: BACTERIA-REFLEX None Seen /HPF (None Seen); CRYSTALS None Seen /LPF (None Seen); URINE RBC 0-2 Rare /HPF (0-2)
--- NOTE | 2019-12-10 15:00 | NUR ---
PLACED BACK ON BIPAP AFTER BEING ON 10L/ HFNC AT 1430 AFTER BEING OFF SINCE 1245 FOR LUNCH. MONITOR SHOWING NSR WITH FREQ PAC'S NOTED. ATTEMPTING TO HAVE A BM, ONLY PASSING FLATUS. AT BEDSIDE.
[2019-12-11] VITALS (22 sets, daily range): BP systolic 97–119; BP diastolic 28–44
--- NOTE | 2019-12-11 01:36 | NUR ---
PT O2 SAT UNDER 90, REPIRATORY CONTACTED. BIPAP FIO2 INCREASED TO 60%.
[2019-12-11 04:31] LABS: BE(vivo) 14.8 mmol/L (-2 to +3); HCO3 38.7 mmol/L (22.0-26.0); PCO2 44.9 mmHg (35.0-45.0); PO2 54.1 mmHg (80.0-100.0); pH 7.553 (7.360-7.450); sO2 91.5 % (92.0-98.0)
--- NOTE | 2019-12-11 05:07 | NUR ---
DR DASILVA CALLED REGARDING INCREASE OF FI02 TO 65%. NO NEW ORDERS.
[2019-12-11 05:27] LABS: HEMATOCRIT 29.5 % (42.0-52.0); HEMOGLOBIN 9.9 gm/dL (14.0-18.0); LYMPHOCYTES 0.9 % (24.0-44.0); MCH 34.1 pg (26.0-34.0); MCHC 33.5 g/dL (28.0-37.0); MCV 101.7 fL (80.0-100.0); MONOCYTES 2.4 % (1.0-8.0); PLATELET COUNT 158 thou/uL (150-400); POLYS 96.7 % (36.0-66.0); RDW 16.5 % (10.5-14.5); WBC 12.4 thou/uL (4.0-11.0)
[2019-12-11 05:50] LABS: ALBUMIN 1.8 g/dL (3.4-5.0); CREATININE 1.3 mg/dL (0.7-1.3); MAGNESIUM 2.1 mg/dL (1.8-2.4); PHOSPHORUS 2.6 mg/dL (2.5-4.9); POTASSIUM 3.1 mmol/L (3.5-5.1); TOTAL BILIRUBIN 0.8 mg/dL (0.2-1.0); TOTAL PROTEIN 4.6 g/dL (6.4-8.2)
--- NOTE | 2019-12-11 22:25 | NUR ---
1992- Nurse called patients , per patient request. Nurse updated patients on plan of care and current vital signs. She expressed if we need her to talk with him to help with anxiety, we can call her any time. Nurse updated patient on nurse talking with his . Nurse expressed plan of care to patient and expressed his goal is to get some rest tonight. He is resting calmly with respiratory rate 14-24 bpm, o2 saturations 94-97%. Nurse to continue to monitor patient status. Nurse also offered a bath to help him relax, he expressed he didn't want one tonight. Nurse expressed to him if he changes his mind, let us know. Nurse also informed this to patients .
[2019-12-12] VITALS (72 sets, daily range): BP systolic 76–124; BP diastolic 23–42
[2019-12-12 06:16] LABS: ABSOLUTE NEUTROPHILS 11.8 thou/uL (1.4-8.2); BASOPHILS 0.1 % (0.0-2.0); HEMATOCRIT 31.9 % (42.0-52.0); HEMOGLOBIN 10.5 gm/dL (14.0-18.0); LYMPHOCYTES 0.8 % (24.0-44.0); MCHC 32.9 g/dL (28.0-37.0); MCV 103.3 fL (80.0-100.0); MONOCYTES 2.8 % (1.0-8.0); PLATELET COUNT 194 thou/uL (150-400); POLYS 96.3 % (36.0-66.0); RBC 3.09 mil/uL (4.50-6.00); RDW 17.6 % (10.5-14.5); WBC 12.3 thou/uL (4.0-11.0)
[2019-12-12 06:25] LABS: CREATININE 1.2 mg/dL (0.7-1.3); MAGNESIUM 2.5 mg/dL (1.8-2.4); POTASSIUM 3.5 mmol/L (3.5-5.1)
--- NOTE | 2019-12-12 07:32 | NUR ---
Patient not progressing towards plan of care as evidenced by patient continued requirement of oxygen, intermittent desaturation without bipap, patient intermittent anxiety about his feelings of inability to catch his breath.
--- NOTE | 2019-12-12 10:42 | NUR ---
0830 PT PLACED ON 15L/NC AND ASSISTED WITH BREAKFAST. AFTER 4 BITES OF PUDDING AND SMALL AMOUNT OF LIQUIDS PT FATIGUED. O2 SATS DECREASED TO 88%. 80% BIPAP REAPPLIED. PT STATES THAT HE IS GETTING VERY TIRED AND ANXIOUS AND THAT HE WANTS TO BE INTUBATED TODAY. DR DASILVA PAGED. 1000 DR LLANOS HERE AND SPOKE WITH PT AND HIS . ORDER FOR LASIX AND DOBUTAMINE. ORDER TO PLACE MULTI LUMEN CENTRAL LINE. IV TEAM CONTACTED. PT IN AGREEMENT WITH PLACEMENT. 1015 DR DASILVA HERE AND SPOKE WITH PT AND HIS . PLAN FOR INTUBATION FOLLOWING CENTRAL LINE PLACMENT. PT AND HIS IN AGREEMENT.
--- NOTE | 2019-12-12 12:04 | NUR ---
CONSULTED TO PLACE A CENTRAL LINE FOR A PATIENT ADMITTED TO THE ICU LAST WEEK. THIS PATIENT HAS A PICC LINE BUT NEEDS MORE ACCESS THAN A SINGLE LUMEN. DISCUSSED CENTRAL LINE PLACEMENT WITH THE PATIENT AND HIS AND THEY VERBALIZED UNDERSTANDING. THE RIGHT JUGULAR WAS WIDLEY PATENT. A #6F TRIPLE LUMEN POWER INJECTABLE CENTRAL LINE WAS PLACED PER HOSPITAL POLICY. 25CM LINE WAS ADVANCED WITHOUT DIFFICULTY AND A STAT CHEST XRAY WAS ORDERED FOR CONFIRMATION
[2019-12-12 13:33] LABS: BE(vivo) 9.7 mmol/L (-2 to +3); HCO3 35.5 mmol/L (22.0-26.0); PCO2 54.3 mmHg (35.0-45.0); PO2 208.2 mmHg (80.0-100.0); pH 7.433 (7.360-7.450); sO2 99.4 % (92.0-98.0)
--- NOTE | 2019-12-12 14:41 | NUR ---
1250 PT INTUBATED PROPOFOL AND LEVOPHED GTTS INITIATED. OG INSERTED. XRAY DONE AND PLACEMENT CONFIRMED FOR ET AND OG TUBES. XRAY SHOWING RIGHT IJ JUST BELOW THE MEDIAL CLAVICLE. RIGHT IJ SITE DRESSING SATURATED WITH SANG DRAINAGE X2. IV TEAM NOTIFIED OF XRAY AND HERE FOR LINE ADJUSTMENT. PT'S AT BEDSIDE AND FREQUENTLY UPDATED. WILL CONTINUE TO MONITOR PATIENT.
--- NOTE | 2019-12-12 16:40 | NUR ---
1 HOUR POST XRAY CONFIRMATION THE LINE WAS ACCIDENTLY PULLED BACK WITH A DRESSING CHANGE. LINE REPLACED VIS OVER THE WIRE EXCHANGE USING STERILE TECHNIQUE. A STAT CHEST XRAY CONFIRMED LINE IN ADEQUATE POSITION. PADDY APPLIED TO THE SITE DUE TO BLEEDING
--- NOTE | 2019-12-12 18:44 | NUR ---
[address] DASILVA AND UPDATED HIM REGARDING PT STATUS, ABG'S, BP, GTT, URINE OUTPUT. FLUID BOLUS TO BE GIVEN OVER 4HRS INTIATED ORDERED.
--- NOTE | 2019-12-12 21:43 | NUR ---
ASSUMED PT CARE AT 1900. PT ON PROPOFOL, DOBUTAMIN AND LEVO. SEDATION VACATION FOR 10 MINS, PT OPENS EYES, FOLLOWS COMMANDS HAS POSITIVE COUGH/GAG REFLEX, MOVES ALL EXTREMITIES AND FACIAL GRIMACES TO PAIN. MARYCARMEN WRAP OFF FROM BILATERAL LEGS AT 1950. DOBUTAMINE NOW UP TO 4MCG AMD LEVO UP TO 25MCG. LEVO CHANGED TO DOUBLE CONC PER PHARMACY, WILL START DBL CONC ONCE PREVIOUS BAG IS COMPLETE. PT MOST RECENT MAP IS 57. PT IS STABLE FOR NOW, WILL CONTINUE TO CLOSELY MONITOR.
[2019-12-13] VITALS (79 sets, daily range): BP systolic 78–119; BP diastolic 27–48
[2019-12-13 05:30] LABS: BE(vivo) 6.6 mmol/L (-2 to +3); PCO2 50.3 mmHg (35.0-45.0); PO2 78.3 mmHg (80.0-100.0); pH 7.422 (7.360-7.450); sO2 95.6 % (92.0-98.0)
[2019-12-13 06:08] LABS: ABSOLUTE NEUTROPHILS 7.6 thou/uL (1.4-8.2); BASOPHILS 0.1 % (0.0-2.0); HEMOGLOBIN 9.1 gm/dL (14.0-18.0); LYMPHOCYTES 1.1 % (24.0-44.0); MCH 33.9 pg (26.0-34.0); MCHC 32.7 g/dL (28.0-37.0); MCV 103.8 fL (80.0-100.0); MONOCYTES 4.3 % (1.0-8.0); PLATELET COUNT 177 thou/uL (150-400); POLYS 94.5 % (36.0-66.0); RDW 17.4 % (10.5-14.5); WBC 8.1 thou/uL (4.0-11.0)
[2019-12-13 06:31] LABS: ALBUMIN 1.7 g/dL (3.4-5.0); CALCIUM 8.1 mg/dL (8.5-10.1); CREATININE 1.3 mg/dL (0.7-1.3); MAGNESIUM 2.4 mg/dL (1.8-2.4); POTASSIUM 3.7 mmol/L (3.5-5.1); TOTAL BILIRUBIN 0.4 mg/dL (0.2-1.0); TOTAL PROTEIN 4.7 g/dL (6.4-8.2)
--- NOTE | 2019-12-13 09:19 | NUR ---
Pt WITH RESPIRATORY DECLINE AND IS NOW ON VENT. WILL PLACE Pt ON HOLD AT THIS TIME AND REQUEST NEW P.T. EVAL ORDERS WHEN Pt IS MEDICALLY READY TO INITIATE P.T. AGAIN.
[2019-12-13 13:07] LABS: ANA INTERPRETATION Negative (Negative)
--- NOTE | 2019-12-13 13:31 | NUR ---
chart review , he was intubated over the weekend. cm able to visit with his malena, no concerns, just waiting for ct scan result and he going for prakash tomorrow, so will see what they show. thank you per . will cont following as needed for dc needs. 5n following.
--- NOTE | 2019-12-13 16:01 | NUR ---
5N CONSULT RECEIVED AFTER Pt TRANSFERRED BACK TO ACUTE FROM 5N REHAB UNIT ON 12/09/19. Pt IS CURRENTLY ON VENTILATOR AND AWAITING ANGELA TOMORROW. WILL CONTINUE TO FOLLOW TO SEE IF Pt BECOMES MEDICALLY APPROPRIATE TO START WORKING WITH THERAPIES.
[2019-12-14] VITALS (19 sets, daily range): BP systolic 102–128; BP diastolic 30–51
[2019-12-14 05:59] LABS: ALBUMIN 1.9 g/dL (3.4-5.0); CALCIUM 8.3 mg/dL (8.5-10.1); CREATININE 1.1 mg/dL (0.7-1.3); PHOSPHORUS 3.8 mg/dL (2.5-4.9); POTASSIUM 3.8 mmol/L (3.5-5.1)
--- NOTE | 2019-12-14 11:14 | NUR ---
Nutrition: NPO x 3 days. REC start enteral nutrition of Vital HP to reach 70 mL/hr following procedures.
--- NOTE | 2019-12-14 14:03 | TEE ---
[facility] [place] [address] TRANSESOPHAGEAL ECHOCARDIOGRAM Name: ODELL ZARAGOZA Room #: 242-P ADM IN M.R.#: [id number] Admission: 12/09/19 Attend Phys: Al Cramer MD Discharge: Date of : 45 Report #: [id number] THIS REPORT FOR: cc: JULISA - No family physician/PCP FAM - No family physician/PCP Kalpesh Hines MD [facility] ~ APPROVED REPORT Study performed: 12/14/2019 12:01:08 EXAM: Transesophageal Echocardiogram Patient Location: ICU Room #: 242 Status: routine BSA: 2.01 HR: 92 bpm BP: 118/32 mmHg Rhythm: NSR Indications Aortic valve endocarditis. Procedure After obtaining informed consent, patient underwent transesophageal echo in the ICU. Type of Sedation : Conscious Sedation Sedation was achieved intravenously with: Propofol (25) Transesophageal probe was inserted and advanced into esophagus without difficulty by Kalpesh Hines MD. FACC.. Echo enhancement indication: R/O Septal defect. Echo enhancement agent administered: Agitated Saline The ANGELA was performed without complications. Throughout the procedure, the blood pressure, pulse oximetry, cardiac rhythm, and rate were monitored. The patient tolerated the procedure without adverse effects. Recovery from conscious sedation was uneventful and vital signs were stable. Left Ventricle The left ventricle is normal size. There is normal LV segmental wall motion. There is normal left ventricular wall thickness. Left ventricular systolic function is normal. LVEF is 55-60%. [facility] [address] [place] [address] TRANSESOPHAGEAL ECHOCARDIOGRAM Name: ODELL ZARAGOZA Room #: 242-P ADM IN .R.#: [id number] Admission: 12/09/19 Attend Phys: Al Cramer MD Discharge: Date of : 45 Report #: [id number] Right Ventricle The right ventricle is normal size. The right ventricular systolic function is normal. Atria The left atrium size is normal. No thrombus is visualized in the left atrium or appendage. No shunting noted with contrast bubble injection. The right atrium size is normal. Aortic Valve Echo density noted on the flow side of the aortic valve, consistent with endocarditis. (1.4cm x 0.6cm) Moderate aortic regurgitation. There is no aortic valvular stenosis. Mitral Valve The mitral valve is normal in structure. Mild mitral regurgitation. Tricuspid Valve The tricuspid valve is normal in structure. Mild to moderate tricuspid regurgitation. Pulmonic Valve The pulmonary valve is normal in structure. Trace pulmonic regurgitation. Great Vessels Descending aorta is not well visualized. Pericardium There is no pericardial effusion. <Conclusion> Consent was obtained from his Patient intubated/sedated Esophageal probe was advanced without difficulty Left ventricular size in the upper limits of normal Normal left ventricular wall thickness Ejection fraction of 55-60% Left atrial appendage, moderate size, no obvious mass or clot detected Tricuspid aortic valve Echogenicity in the aortic valve estimate around 1.4 cm x 0.6 cm, mobile, compatible with a vegetation At least moderate aortic valve insufficiency by short axis views No obvious echolucency, therefore no obvious abscess detected [facility] [address] [place] [address] TRANSESOPHAGEAL ECHOCARDIOGRAM Name: ODELL ZARAGOZA Room #: 242-P [facility] IN ..#: [id number] Admission: 12/09/19 Attend Phys: Al Cramer MD Discharge: Date of : 45 Report #: [id number] Mild, central mitral valve insufficiency, no vegetation detected Mild tricuspid valve insufficiency No pericardial effusion No evidence of atrial/ventricular septal defect by color-flow Doppler study Patient tolerated the procedure well <ELECTRONICALLY SIGNED> By: Kalpesh Hines MD, FACC 12/14/191402 02 02 Kalpesh Hines MD, FACC /INF
--- NOTE | 2019-12-14 18:00 | NUR ---
DR. AMARAL CALLED ABOUT PT BLEEDING FROM THE CENTRAL LINE INSERTION SITE. PRESSURE DRESSING CHANGED x3 AT THE SITE. HOSPITAL WIDE INFORMED ABOUT SURGICEL. NEW PRESSURE DRESSING PLACED. ENOXAPARIN DOSE WAS MENTIONED TO DR. AMARAL. GAVE AN ORDER FOR DOSE CHANGE TO 40 MG HS AND FACTOR X A LAB ORDERED FOR 1 AM.
--- NOTE | 2019-12-14 18:44 | NUR ---
DR GONZALEZ CALLED ABOUT PT STILL HAVING CONTINUTATION OF IVF. GAVE AN ORDER TO DC IVF.
[2019-12-15] VITALS (25 sets, daily range): BP systolic 94–125; BP diastolic 24–38
[2019-12-15 04:22] LABS: BE(vivo) 7.6 mmol/L (-2 to +3); HCO3 34.1 mmol/L (22.0-26.0); PCO2 57.7 mmHg (35.0-45.0); PO2 66.8 mmHg (80.0-100.0); pH 7.389 (7.360-7.450); sO2 92.6 % (92.0-98.0)
--- NOTE | 2019-12-15 07:15 | NUR ---
ASSUMED PT CARE AT 1900. PT LIGHTLY SEDATED WITH PROPOFOL. PT ON LEVO TO KEEO MAP ABOVE 40. PT STILL BLEEDING INTERMITENTLY THROUGH RIGHT IJ ACCESS FREQUENT DRESSING CHANGES TO RIGHT IJ CENTRAL NLINE NEEDED THROUGH THE NOC. PT IS CRITICAL BUT STABLE, AND WILL CONTINUE TO CLOSELY MONITOR
[2019-12-15 07:36] LABS: HEMATOCRIT 28.1 % (42.0-52.0); HEMOGLOBIN 9.2 gm/dL (14.0-18.0); MCH 34.1 pg (26.0-34.0); MCHC 32.8 g/dL (28.0-37.0); MCV 104.2 fL (80.0-100.0); PLATELET COUNT 173 thou/uL (150-400); RDW 17.7 % (10.5-14.5); WBC 7.4 thou/uL (4.0-11.0)
[2019-12-15 07:44] LABS: ALBUMIN 1.8 g/dL (3.4-5.0); CALCIUM 7.8 mg/dL (8.5-10.1); CREATININE 1.1 mg/dL (0.7-1.3); POTASSIUM 3.7 mmol/L (3.5-5.1); TOTAL BILIRUBIN 0.5 mg/dL (0.2-1.0); TOTAL PROTEIN 4.7 g/dL (6.4-8.2)
--- NOTE | 2019-12-15 08:30 | NUR ---
ASSUMMED CARE OF PATIENT AT 0700. PATIENT PLACED ON CPAP WITH PEEP OF 5 CM AND PS OF [address] QUIROGA, PROPOFOL OFF, O2 SAT DROPPED TO 89 WITHIN 15 MINS.RESP RATE IN THE LOWER 20'S AND HR IN THE 80'S, SR WITH PVC'S. RYAN POWERS NOTIFIED AND PLACED BACK ON THE VENT. DR QUIROGA AT BEDSIDE AND ORDER NOTED. ALBUMIN INFUSING PER ORDER. WILL CONTINUE TO MONITOR.
[2019-12-15 08:41] LABS: ABSOLUTE NEUTROPHILS 7.3 thou/uL (1.4-8.2); ANISOCYTOSIS 1+; NUCLEATED RBCS 3 /100WBC; PLATELET ESTIMATE NORMAL
--- NOTE | 2019-12-15 13:04 | NUR ---
SPOKE WITH DR. AMARAL AND RIGHT IJ CONTINUES TO BLEED. DISCUSSED PICC PLACEMENT AND HE AGREED. A RIGHT UPPER ARM 5F TRIPLE LUMEN PICC WAS PLACED PER HOSPITAL POLICY. MANAGER BUSINESS PLANNING TO REMOVED RIGHT JUGULAR
--- NOTE | 2019-12-15 13:45 | NUR ---
PATIENT CONTINUES TO BLEED FROM RIJ CENTRAL LINE. PICC PLACED IN RT UPPER ARM BY IV TEAM AND RIJ LINE PULLED ONCE XRAY CONFIRMED POSITION. PRESSURE HELD FOR 25 MINUTES, NO BLEEDING OR HEMATOMA NOTED. FIO2 INCREASED TO 80% O2 SAT 89 TO 91% RANGE.
--- NOTE | 2019-12-15 18:45 | NUR ---
PATIENT REMAINS CRITICAL BUT STABLE. URINE OUTPUT GREATER THAN 100 ML/HR THROUGHOUT THE DAY, LASIX GIVEN PER ORDER. PROPOFOL AT 20 MCG FOR SEDATION AND LEVOPHED UNCHANGED AT 20 MCG/MIN. TOLERATING TUBE FEEDING WITH MIN RESIDUAL THIS EVENING. RIJ DRESSING IS C/D/I NO HEMATOMA NOTED. NO BLEEDING FROM THE RT UPPER ARM PICC. WILL CONTINUE TO MONITOR.
[2019-12-16] VITALS (74 sets, daily range): BP systolic 99–136; BP diastolic 23–48
--- NOTE | 2019-12-16 00:37 | NUR ---
PATIENT'S TEMP WAS A BIT LOW THIS AFTERNOON AND EVENING. THE PREVIOUS NURSE PUT HIM UNDER A BEAR HUGGER. PATIENT'S TEMP CAME UP TO 99.1 AT THIS TIME, AND THE BEAR HUGGER WAS REMOVED. PATIENT'S LEVOPHED WAS CHANGED TO QUAD STRENGTH, HIS RATE IS STILL 20MCG/MIN OR 18.75ML/HR.
[2019-12-16 08:45] LABS: BE(vivo) 11.2 mmol/L (-2 to +3); HCO3 37.7 mmol/L (22.0-26.0); PO2 92.7 mmHg (80.0-100.0); pH 7.409 (7.360-7.450); sO2 96.9 % (92.0-98.0)
--- NOTE | 2019-12-16 11:04 | NUR ---
[address] jasso about pt plan of care and potential transfer to [facility]. [address] clements. 9757 informed herminio fo fi02 of 70. c pap trial again today per herminio. trial at 1111
--- NOTE | 2019-12-16 11:39 | EKG ---
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
[2019-12-17] VITALS (107 sets, daily range): BP systolic 86–144; BP diastolic 20–89
[2019-12-17 05:45] LABS: HEMATOCRIT 23.6 % (42.0-52.0); HEMOGLOBIN 7.8 gm/dL (14.0-18.0); MCH 34.7 pg (26.0-34.0); MCHC 33.2 g/dL (28.0-37.0); MCV 104.4 fL (80.0-100.0); RBC 2.26 mil/uL (4.50-6.00); RDW 18.3 % (10.5-14.5); WBC 9.9 thou/uL (4.0-11.0)
[2019-12-17 05:57] LABS: ALBUMIN 1.8 g/dL (3.4-5.0); CALCIUM 7.6 mg/dL (8.5-10.1); CREATININE 1.1 mg/dL (0.7-1.3); PHOSPHORUS 2.7 mg/dL (2.5-4.9)
--- NOTE | 2019-12-17 06:30 | NUR ---
VSS. HYPOTENSIVE; GOAL TO MAINTAIN MAP >55 ON LEVO GTT. TOLERTATING TF AT GOAL. MINIMAL SECRETIONS INLINE. FIO2 DROPPED TO 60% AND THEN TO 50%. UPDATED VIA PHONE REGARDING PT STATUS OVERNIGHT. PT CONTINUES ON LASIX GTT. ANDERSEN URINE OUTPUT OVERNIGHT WAS 2200 CC. SEDATED ON PROPOFOL GTT. CT OUTPUT GREW BY 50 CC OVERNIGHT. BLOOD GLUCOSE REMAINS ELEVATED. INCREASED SSI TO MODERATE SCALE.
[2019-12-17 08:28] LABS: BE(vivo) 14.1 mmol/L (-2 to +3); HCO3 43.2 mmol/L (22.0-26.0); PO2 60.9 mmHg (80.0-100.0); sO2 86.9 % (92.0-98.0)
[2019-12-17 08:29] LABS: PCO2 90.5 mmHg (35.0-45.0); pH 7.297 (7.360-7.450)
--- NOTE | 2019-12-17 09:41 | NUR ---
Note Given: Y Facility List Provided:Y Facility Chosen: pending placement- from home prior to inpt rehab Pt does not have smartphone. has smartphone [phone]
--- NOTE | 2019-12-17 15:04 | NUR ---
chart review. he requiring iv gtts and medication. remains on vent. malena cont to visit. will cont following as needed for dc needs.
--- NOTE | 2019-12-17 18:15 | NUR ---
SEDATION VACATION FROM [id number] AND TOLERATED WELL BY PATIENT EVIDENCED BY LACK OF TACHYCARDIA, TACHYPNEA, OR RESTLESSNESS. PATIENT WAS ABLE TO OPEN EYES AND NOD YES/NO TO QUESTIONS.
[2019-12-18] VITALS (63 sets, daily range): BP systolic 98–135; BP diastolic 25–37
[2019-12-18 00:37] LABS: BE(vivo) 10.5 mmol/L (-2 to +3); HCO3 36.3 mmol/L (22.0-26.0); PCO2 57.6 mmHg (35.0-45.0); PO2 67.3 mmHg (80.0-100.0); pH 7.417 (7.360-7.450); sO2 93.2 % (92.0-98.0)
[2019-12-18 03:14] LABS: HEMOGLOBIN 6.6 gm/dL (14.0-18.0); MCH 34.7 pg (26.0-34.0); MCHC 33.2 g/dL (28.0-37.0); MCV 104.6 fL (80.0-100.0); RBC 1.91 mil/uL (4.50-6.00); RDW 17.9 % (10.5-14.5); WBC 15.6 thou/uL (4.0-11.0)
[2019-12-18 03:16] LABS: HEMATOCRIT 19.9 % (42.0-52.0)
[2019-12-18 03:26] LABS: ALBUMIN 2.7 g/dL (3.4-5.0); CALCIUM 7.1 mg/dL (8.5-10.1); CREATININE 1.1 mg/dL (0.7-1.3); PHOSPHORUS 3.1 mg/dL (2.5-4.9); POTASSIUM 3.1 mmol/L (3.5-5.1)
--- NOTE | 2019-12-18 07:24 | NUR ---
HYPOTENSIVE OVERNIGHT; MAP VARIED FROM 32-65; MAXED ON LEVO AND VASOPRESSIN GTTS TO MAINTAIN BLOOD PRESSURE. SR TO ST ON MONITOR. HR 70s to 140s. AMIO GIVEN PER TUBE. TF TOLERATED; LOW RESIDUALS. TF TURNED OFF AT MIDNIGHT DUE TO EGD PLANNED FOR 12/17. ETT CUFF LEAKS; WHISTLING SOUND AUDIBLE AT TIMES. DR QUIROGA AWARE; POSSIBLE REPLACEMENT 12/17. OXYGEN SATURATION 88% TO 93% OVERNIGHT. FIO2 INCREASED FROM 60% TO 70% THIS SHIFT. PT RIDES VENT; RR 16. CVP LINE STARTED THIS SHIFT. CVP RANGED FROM 11-13 OVERNIGHT. LASIX GTT DECREASED FROM 10/HR TO 5/HR PER ORDER. DECREASED URINE OUTPUT OVERNIGHT. TOTAL URINE OUT IN ANDERSEN 800 CC. PT HAD MULTIPLE LARGE LIQUID GI BLEED STOOLS; MULTIPLE BED BATHS/LINEN CHANGES. PLACED FMS THIS SHIFT. PT'S LABS ABNORMAL THIS MORNING. NOTIFIED DR QUIROGA OF LABS. HGB 6.6 AND HEMATOCRIT 19.9 (CRITICAL). RECEIVED ORDER TO TRANSFUSE ONE UNIT PRBCS. CALLED RIGOBERTO; NOTIFIED HER OF PT STATUS AND RECEIVED CONSENT TO TRANSFUSE THE 1 UNIT OF BLOOD. BLOOD TRANSFUSION STARTED AT 0539. NEPHENA SEAMAN AT BEDSIDE @ 0410; NOTIFIED HIM OF POTASSIUM LEVEL; RECEIVED ORDER TO GIVE 2 BAGS OF POTASSIUM FOR A TOTAL OF [address] BERRY FROM ID AT BEDSIDE AT 0615; GAVE UPDATE ON PT STATUS. NO CHANGES TO CURRENT REGIMEN. GAVE PATIENT REPORT TO TEETEE GARCES AND WADE RN. PATIENT CARE RELINQUISHED.
[2019-12-18 12:37] LABS: HEMATOCRIT 24.6 % (42.0-52.0); HEMOGLOBIN 8.1 gm/dL (14.0-18.0)
--- NOTE | 2019-12-18 19:12 | NUR ---
PT WAS SEEN TODAY BY //. EGD PERFORMED BEDSIDE, HIATAL HERNIA/GASTRITIS/BEBE'S ESOPHAGUS FOUND PER GI MD. NEW OG TUBE PLACED, 75 AT THE LIP. ART LINE PLACED, FLOWTRAC MONITORING INITIATED. LEVOPHED TITRATED FROM MAX DOSE TO NONE THIS SHIFT. 1UNIT OF PRBC FINISHED THIS SHIFT, NO REACTION, HEMO 8.1. POTASSIUM 2 BAGS GIVEN, 3.8 S/P. CHEST TUBE OUTPUT AT 130CC THIS SHIFT. BLOOD SUGAR STABLE AT 127/126. CREPITUS PRESENT FOR THE PT, BILATERALLY. ANDERSEN OUTPUT AT 500CC. FIO2 INCREASED FROM 70 TO 80% THIS SHIFT. WAS AT BEDSIDE, WAS CONSULTED BY ALL THE MDs TODAY. NO RESTRAINT USED THIS SHIFT. COCCYX HEALING, ORANGE CREAM GIVEN. LESS WEEPY AT THE ARMS. TUBE FEEDING REINITIATED, RUNNING AT GOAL OF 70CC/HR. RN SIGNING OFF
--- NOTE | 2019-12-18 23:00 | NUR ---
Nurse noticed during patient assessment that there was subcutaneous emphysema along chest tube insertion site, into bilateral chest area and right shoulder. No tracheal deviation noted, no respiratory distress and at that time, no tidaling or air leak. It appeared to be patent and connected. Nurse informed this finding to physican. Order was received for chest xray to confirm placement. Nurse assessed hourly chest tube output and the ball in the water chamber started moving. An air leak and tidaling then noticed, continuously. This was informed to physician. Nurse took down dressing to confirm external status of chest tube. Skin is intact and tubing appears to be intact. No external chest tube holes noted. New dressing placed with xeroform, gauze, and transparent dressing. Tidaling and air leak is no longer present at this time. Chest xray was taken after dressing change was done. Will await results. Physician informed of the above.
--- NOTE | 2019-12-19 01:56 | NUR ---
0145- Patient was positioned on his right side. Then his heart rate increased to low 100 rate, oxygenation dropped into upper 80%. No other apparent signs of distress. Nurse repositioned patient with assistance of RT, and obtained a new o2 saturation probe. His o2 sat was varified on three different sites. RT switched him to 100% for recovery. His oxygen saturation at this time is 91-93%. Heart rate is 96 bpm. He appears in less distress at this time. Nurse to avoid the right side, secondary to his pulmonary status, at this time.
[2019-12-19 05:25] LABS: BE(vivo) 14.5 mmol/L (-2 to +3); HCO3 41.4 mmol/L (22.0-26.0); PO2 60.8 mmHg (80.0-100.0); pH 7.369 (7.360-7.450); sO2 89.3 % (92.0-98.0)
[2019-12-19 05:26] LABS: PCO2 73.4 mmHg (35.0-45.0)
[2019-12-19 06:03] LABS: HEMOGLOBIN 6.7 gm/dL (14.0-18.0)
[2019-12-19 06:06] LABS: ABSOLUTE NEUTROPHILS 12.5 thou/uL (1.4-8.2); EOSINOPHILS 0.1 % (0.0-3.0); LYMPHOCYTES 2.8 % (24.0-44.0); MCH 33.3 pg (26.0-34.0); MCHC 33.7 g/dL (28.0-37.0); MONOCYTES 3.2 % (1.0-8.0); PLATELET COUNT 87 thou/uL (150-400); POLYS 93.9 % (36.0-66.0); RBC 2.01 mil/uL (4.50-6.00); RDW 23.5 % (10.5-14.5); WBC 15.7 thou/uL (4.0-11.0)
[2019-12-19 06:18] LABS: ALBUMIN 3.2 g/dL (3.4-5.0); CALCIUM 7.8 mg/dL (8.5-10.1); CREATININE 1.2 mg/dL (0.7-1.3); PHOSPHORUS 3.7 mg/dL (2.5-4.9); POTASSIUM 3.6 mmol/L (3.5-5.1); TOTAL BILIRUBIN 2.6 mg/dL (0.2-1.0); TOTAL PROTEIN 4.8 g/dL (6.4-8.2)
[2019-12-19 06:33] LABS: HEMATOCRIT 19.9 % (42.0-52.0); MCV 98.8 fL (80.0-100.0)
[2019-12-19 07:14] LABS: ANISOCYTOSIS 3+
[2019-12-19 07:15] LABS: HYPOCHROMASIA 2+; LARGE PLATELETS OCCASIONAL; MICROCYTES 1+; POLYCHROMASIA 1+
[2019-12-19 07:16] LABS: CORRECTED WBC 13.7 thou/uL (4.0-11.0); METAMYELOCYTES 1 %; MYELOCYTES 1 %; NUCLEATED RBCS 15 /100WBC
--- NOTE | 2019-12-19 08:25 | NUR ---
Patient not progressing towards plan of care as evidenced by desaturations with minimal movement, extensive subcutaneous emphysema, intermittent tidaling and air leak noted. Patient back on levophed secondary to decreasing systolic blood pressure reading into the low 100's and diastolic blood pressure in the 20-30's range. Levophed increased these readings to result with map of >65. Patient with lightened sedation nods yes/no and attempts to move his fingers and toes.
--- NOTE | 2019-12-19 10:20 | P ---
[facility] [place] [address] PROCEDURE REPORT Name: ODELL ZARAGOZA Room #: 242-P ADM IN M.R.#: [id number] Admission: 12/09/19 Attend Phys: Al Cramer MD Discharge: Date of : 45 Report #: [id number] THIS REPORT FOR: cc: JULISA - No family physician/PCP JULISA - Marla family physician/PCP Malvin Moran MD ~ CC: Dr. Jag EGAN physician/PCP Nathan Cramer DATE OF SERVICE: 12/18/2019 PROCEDURE PERFORMED: Upper endoscopy. HISTORY OF PRESENT ILLNESS: The patient is a 74-year-old male with a history of pneumonia; respiratory failure; pneumothorax, status post chest tube; atrial fibrillation with rapid ventricular response; aortic valve vegetations in the ICU, currently intubated and sedated on 2 pressors at this time. Also, has anasarca. He was noted to have hemoglobin trending down over admission from 11.0 to a low of 6.6 today. He was transfused 1 unit. Stools are hemoccult positive x 1. Fecal management tube is in place with brown stool. OG tube is in place with no evidence of blood aspirate. He does have an elevated BUN to creatinine ratio, BUN 65, creatinine 1.1. The patient has been on Eliquis recently, held a day and a half ago as well as Lovenox also on hold. Plan is for upper endoscopy. DESCRIPTION OF PROCEDURE: The risks and benefits of the procedure were explained to the patient's , those risks including but not limited to bleeding, perforation and the risk of sedation. She understood these risks and gave informed consent. The procedure was performed in the Intensive Care Unit at the bedside. Again, the patient is already on a ventilator at this time and is sedated with propofol. Next, using a standard Olympus upper endoscope, the scope was placed in the patient's mouth and advanced under direct vision through the esophagus, stomach and into the second portion of the duodenum. The OG tube was removed prior to the procedure. The endotracheal tube was noted to be in place. The upper and mid esophagus was normal. In the distal esophagus, there appears to be approximately 5-6 cm segment of Gómez's esophagus. No evidence of esophagitis, no bleeding. I did not obtain biopsies as the patient has been on recent anticoagulation therapy. Upon entering the stomach, a small hiatal hernia was noted. A mild gastritis was noted. There was no evidence of blood throughout the exam other than a few small linear areas showing erythematous spots with a small amount of blood. This is mostly consistent with OG trauma in the gastric fundus. Again, no significant bleeding. The pylorus was normal and patent. The duodenal bulb, first and second portion were all normal. No [facility] [address] [place] [address] PROCEDURE REPORT Name: ODELL ZARAGOZA Room #: 242-P [facility] IN M.R.#: [id number] Admission: 12/09/19 Attend Phys: Al Cramer MD Discharge: Date of : 45 Report #: [id number] evidence of ulcerations. No evidence of old blood throughout the exam today. At this point, the scope was then brought back up into the patient's oropharynx and a new OG tube was inserted under direct vision into the gastric antrum. This remained in place as the scope was then withdrawn. The procedure was terminated. The patient tolerated the procedure well. IMPRESSION: 1. Possible segment of Gómez's esophagus distal esophagus. No signs of bleeding. 2. Small hiatal hernia. 3. Minimal OG trauma noted in the stomach. No significant bleeding. 4. Mild gastritis. 5. Otherwise, normal upper endoscopy. RECOMMENDATIONS: 1. Okay to use OG tube again at this time, 2. Continue PPI therapy every day. 3. No stigmata of recent significant bleeding on upper endoscopy today. Minimal OG trauma. Currently, the patient has brown stools and fecal management would observe at this point. If signs of significant GI bleed, then consider a colonoscopy or possible nuclear medicine scan in the future. At this point, we would recommend continuing to hold anticoagulation therapy and observe. Thank you for allowing me to participate in his care. <ELECTRONICALLY SIGNED> By: Malvin Moran MD 12/19/19 1020 1044 1809 Malvin Moran MD /nt
[2019-12-19 10:34] LABS: FIBRINOGEN 196.1 mg/dL (210-360); INR 1.1; PROTIME 11.4 Seconds (9.3-11.4)
[2019-12-19 11:25] LABS: OBSERVED RETIC COUNT 3.95 % (0.6-2.6)
[2019-12-19 11:28] LABS: APTT 29.7 Seconds (24.5-32.8); D-DIMER 0.42 ug/mLFEU (0.19-0.50)
[2019-12-19 12:07] VITALS: BP 122/38; BP 123/32; BP 125/37; BP 137/38; BP 143/39
--- NOTE | 2019-12-19 12:43 | HC ---
[facility] [place] [address] CONSULTATION Name: ODELL ZARAGOZA Room #: 242-P ADM IN M.R.#: [id number] Admission: 12/09/19 Attend Phys: Al Cramer MD Discharge: Date of : 45 Report #: [id number] THIS REPORT FOR: cc: JULISA - No family physician/PCP JULISA - No family physician/PCP Mohamud Yanes MD ~ DATE OF SERVICE: 12/11/2019 HISTORY OF PRESENT ILLNESS: This is a 74-year-old male patient who was evaluated by me for the possibility of myasthenia gravis. I talked to Dr. Mendez. She indicated that this patient has respiratory difficulty. His family has indicated that his speech becomes low tone once he talks. He has a history of obstructive sleep apnea as well as respiratory failure. He also has apparently a history of endocarditis. Multiple consultants are following him up and managing up and our consultation was requested to see what can be done to exclude the possibility of myasthenia gravis. I will strictly confine myself to that question. I discussed that with Dr. Mendez in general. REVIEW OF SYSTEMS: Indicates that he has multiple problems. He is anemic. His sodium is 151. His potassium is 3.1. His blood sugar is 225. His AST and ALT is high. His alkaline phosphatase is high. His albumin is very low, so he has pretty significant systemic problem. He denies any history of ptosis. He thinks his mentation is okay. A 14-point review of system was carried out both from the record as well as by talking to the patient as much as I could. He is on BiPAP, so he could not talk well and could not cooperate with the examination. PAST MEDICAL HISTORY: Positive for COPD. FAMILY HISTORY: Noncontributory. SOCIAL HISTORY: He does not smoke. PHYSICAL EXAMINATION: He is alert, responsive. He is oriented. It is difficult to do a full examination because of he being on BiPAP, but he can move his eyes in all directions. He can move all 4 extremities. He believes his sensation is okay, but it is difficult to carry out sensation in detail. This patient is on multiple medications for his respiratory problem as well as his cardiac problem and diabetes. He is a well-built individual. His blood pressure is 108/40, temperature is 97. He does not appear to have edema, cyanosis or jaundice. IMPRESSION: The patient consultation was requested to exclude the possibility of myasthenia gravis. I sent the myasthenia markers and they are positive in [address] [address] CONSULTATION Name: ODELL ZARAGOZA Room #: 242-P [facility] IN ..#: [id number] Admission: 12/09/19 Attend Phys: Al Cramer MD Discharge: Date of : 45 Report #: [id number] majority of the patients. If they are positive, then the patient can be treated accordingly. If they are negative, then excluding myasthenia is difficult. He will need other testing, which needs to be done as an outpatient because of the hospital policies. That testing will start with MuSK antibodies as well as the patient will need a single fiber repetitive stimulation, which needs to be done in [facility] at and I will suggest referring him there. This patient also has multiple other metabolic problems including very high sodium that needs to be cautiously corrected. Once he stabilizes, it would be desirable to do an MRI on him just to exclude any other pathology, which is unlikely. Please check the myasthenia markers and call us if it comes out to be positive. If it is negative, the above plan can be followed, but that cannot be followed in hospital here or in the office and has to be arranged as an outpatient with [facility] or some similar facility. Thank you very much for this referral. <ELECTRONICALLY SIGNED> By: Mohamud Yanes MD 12/19/19 [id number] Mohamud Ynaes MD /nt
[2019-12-19 15:53] VITALS: BP 125/37; BP 128/34; BP 134/32
--- NOTE | 2019-12-19 18:28 | NUR ---
PT SEEN BY ///. FIO2 MAINTAINED AT 100% THROUGHOUT SHIFT. 2ND CHEST TUBE PLACED BY . CXR CONFIRMED PLACEMENT. PT'S CONSULTED BY . LASIX INCREASED TO 10ML/HR. PHENYLEPHINEPHRINE STARTED, MAINTAINED AT 25MCG/MIN. SVR INCREASED THIS SHIFT, NOW AT 547. URINE OUTPUT 250CC THIS SHIFT. RENAL MD NOTIFIED. SEDATION VACATION PERFORMED 15MIN DURATION, PATIENT OPENED EYES. SECOND PIV PLACED, LFA 20G. 2 UNITS OF PRBC ADMINISTERED. PT HAD 500CC RESIDUAL AT 1600, TUBE FEEDING ON HOLD. SEEN BY WELL. PT NOT PROGRESSING TOWARDS DISMISSAL GOALS.
--- NOTE | 2019-12-19 21:37 | NUR ---
This RN to bedside at 1900. Patient still receiving second unit of blood. Finished around 2100. Patient satting between 88-92%. Second chest tube was placed at 1700. Pressures stable. This RN spoke to Kiya, at 2137 regarding patient status and tolerance to chest tube placement. Updated on care plan, labs, medications and vitals. Will continue to monitor.
[2019-12-19 22:27] LABS: HEMATOCRIT 27.4 % (42.0-52.0)
[2019-12-20 03:05] LABS: HEMOGLOBIN 6.8 g/dL (13.0-17.7)
[2019-12-20 04:51] LABS: BE(vivo) 4.6 mmol/L (-2 to +3); HCO3 30.9 mmol/L (22.0-26.0); PCO2 55.6 mmHg (35.0-45.0); pH 7.363 (7.360-7.450); sO2 86.9 % (92.0-98.0)
--- NOTE | 2019-12-20 05:36 | NUR ---
This RN spoke to Dr. Mcconnell at 0515 regarding patients critical ABG results. Enedina instructed to increase PEEP to 10. Will continue to monitor.
[2019-12-20 06:26] LABS: HEMOGLOBIN 9.1 gm/dL (14.0-18.0)
[2019-12-20 06:29] LABS: MCH 31.2 pg (26.0-34.0); MCHC 32.3 g/dL (28.0-37.0); MCV 96.5 fL (80.0-100.0); PLATELET COUNT 70 thou/uL (150-400); WBC 18.9 thou/uL (4.0-11.0)
[2019-12-20 06:43] LABS: ALBUMIN 3.7 g/dL (3.4-5.0); CALCIUM 7.9 mg/dL (8.5-10.1); CREATININE 1.4 mg/dL (0.7-1.3); PHOSPHORUS 4.9 mg/dL (2.5-4.9); POTASSIUM 3.9 mmol/L (3.5-5.1); TOTAL BILIRUBIN 2.7 mg/dL (0.2-1.0)
[2019-12-20 09:38] LABS: ABSOLUTE NEUTROPHILS 13.7 thou/uL (1.4-8.2); ANISOCYTOSIS 2+; CORRECTED WBC 15.4 thou/uL (4.0-11.0); METAMYELOCYTES 2 %; NUCLEATED RBCS 23 /100WBC; PLATELET ESTIMATE DECREASED; POIKILOCYTOSIS 1+
--- NOTE | 2019-12-20 13:26 | NUR ---
Nutrition status change as pt remains intubated and need for TF
--- NOTE | 2019-12-20 18:19 | NUR ---
PT SEEN BY //WOUND CARE MD/APPRAISAL SPECIALIST//// TODAY. PT'S WANTED TO SPEAK ABOUT COMFORT CARE, CONSULT TO WAS ORDERED AND PAGED X2. PT'S CODE STATUS CHANGED TO NO CODE TODAY. ALSO SAW THE PT. PT'S DONATO GTT INCREASED FROM 50 TO 75MCG. UNABLE TO TURN OR PERFORM SEDATION VACATION R/T TO PT HEMODYNAMIC INSTABILITY. CLRT IN PLACE. MTN NOTIFIED THIS SHIFT PER FLOWSHEET ALARM. PER ART LINE NEEDS TO BE REMOVED IN COUPLE DAYS. TUBE FEEDING TITRATED BACK TO 40CC, PT TOLERATING. GOAL AT 70CC/HR. LOW URINE OUTPUT, 125CC THIS SHIFT. MOTTLING/CYANOSIS PRESENT AT DISTAL EXTREMETIES. PER PT'S , DAUGHTER IS TO COME SEE THE PT TOMORROW.
[2019-12-20 23:52] LABS: HEMOGLOBIN 9.4 gm/dL (14.0-18.0)
[2019-12-20 23:54] LABS: HEMATOCRIT 28.8 % (42.0-52.0)
--- NOTE | 2019-12-20 23:58 | NUR ---
2324 - THIS RN IN ROOM FOR ROUTINE ICU ASSESSMENT. NEW FINDING OF ALEX RED BLOOD COLLECTING IN RECTAL TUBE. 2339 - CHANGE CONSULTANT TOMMY CALLED AND NOTIFIED. ORDERS FOR STAT H&H. PT'S SVR TRENDING DOWN, CO/CI/SVV TRENDING UP SHOWN ON TRAC FLOW. PT REMAINS ON DONATO AND VASO FOR BP SUPPORT. CURRENTLY PT IS HEMODYNAMICALLY STABLE BUT NOT PROGRESSING TOWARDS GOALS SHOWN BY NEW FINDING OF BLEEDING.
[2019-12-21 05:14] LABS: HEMOGLOBIN 9.3 gm/dL (14.0-18.0)
[2019-12-21 05:17] LABS: HEMATOCRIT 28.5 % (42.0-52.0); MCH 31.6 pg (26.0-34.0); MCHC 32.5 g/dL (28.0-37.0); MCV 97.3 fL (80.0-100.0); RBC 2.93 mil/uL (4.50-6.00); RDW 20.5 % (10.5-14.5); WBC 18.2 thou/uL (4.0-11.0)
[2019-12-21 05:39] LABS: BE(vivo) 2.5 mmol/L (-2 to +3); HCO3 31.3 mmol/L (22.0-26.0); PO2 56.6 mmHg (80.0-100.0)
[2019-12-21 05:40] LABS: PCO2 74.8 mmHg (35.0-45.0); pH 7.239 (7.360-7.450)
[2019-12-21 05:46] LABS: ALBUMIN 4.4 g/dL (3.4-5.0); CALCIUM 8.8 mg/dL (8.5-10.1); CREATININE 1.8 mg/dL (0.7-1.3); PHOSPHORUS 6.2 mg/dL (2.5-4.9); POTASSIUM 4.3 mmol/L (3.5-5.1)
--- NOTE | 2019-12-21 16:16 | NUR ---
PT INTUBATED, NO SEDATION. VASO/DONATO GTT FOR BP SUPPORT. VENT SETTINGS UNCHANGED. PT WILL SOMETIMES TRACK WITH EYES, DOES NOT HAVE DEEP PAIN REFLEX, NO CORNEAL REFLEX, NO PURPOSFUL MOVEMENT. NO COUGH, SLIGHT GAG REFLEX. PUPILS REACTIVE TO LIGHT. AFEBRILE, FMS IN PLACE WITH BLOOD TINGED STOOL, OLIGURIC ON LASIX GTT. AT BEDSIDE THROUGHT DAY. PTS CARE AND PLAN HAS BEEN DISCUSSED EXTENSIVELY WITH THE MEDICAL TEAM, RN, AND . PALLIATIVE CARE HAS BEEN CONSULTED AND IS AT BEDSIDE NOW. PT, , AND DAUGHTER HAVE BEEN UPDATED AND EDUCATED ON PT CONDITION AND POC. PT NOT PROGRESSING TOWARDS POC.
[2019-12-21 20:44] VITALS: BP 117/36
--- NOTE | 2019-12-22 10:05 | NUR ---
FAMILY AND BEVERAGE INSPECTION MACHINE TENDER HERE. AWAITING HL7 DEVELOPER TO ANNOINT PATIENT. FAMILY NOT READY TO WITHDRAW CARE YET BUT STATE THEY WILL DO IT LATER TODAY. INFORMED MORPHINE AND ATIVAN ARE LOWERING 02 SAT. FAMILY AWARE AND STATE IT IS OK TO PROCEED WITH MEDICATION EVEN THOUGH IT COULD LOWER SAT AND BP.
--- NOTE | 2019-12-22 10:50 | NUR ---
PRONOUCED BY THIS RN AND JAMSHID PEOPLES. NO HEART TONES, NO SPONTANEOUS RESP, PUPILS FIXED AND DIALATED. POST MOTEM CARE DONE. EMOTIONAL SUPPORT TO FAMILY.
--- NOTE | 2019-12-22 10:59 | NUR ---
cm notified by dr salazar that and family had question about arrangement. and daughter her and withdrawal care and comfort care. cm went to icu waiting room. malena and daughter along with their addressing machine operator here meeting with our kirt. cm passed on condolence and prayer for his and daughter.
== END 2019-12-22 10:50 | DRG 870 ==
LOC: ICU 10:36
PROVIDERS: Hospitalist; Internal Medicine; Internal Medicine Pulmonary Disease; Nurse Practitioner; Nurse Practitioner Family; Pediatrics; Specialist; ADMIT Hospitalist; ATTEND Hospitalist
PROC: 5A09457 Assistance with Respiratory Ventilation, 24-96 Consecutive Hours, Continuous Positive Airway Pressure (ICD-10-PCS; principal; 2019-12-09)
PROC: 5A09357 Assistance with Respiratory Ventilation, Less than 24 Consecutive Hours, Continuous Positive Airway Pressure (ICD-10-PCS; 2019-12-10)
PROC: 5A09357 Assistance with Respiratory Ventilation, Less than 24 Consecutive Hours, Continuous Positive Airway Pressure (ICD-10-PCS; 2019-12-11)
PROC: 0BH17EZ Insertion of Endotracheal Airway into Trachea, Via Natural or Artificial Opening (ICD-10-PCS; 2019-12-12)
PROC: 5A1955Z Respiratory Ventilation, Greater than 96 Consecutive Hours (ICD-10-PCS; 2019-12-12)
PROC: 5A09357 Assistance with Respiratory Ventilation, Less than 24 Consecutive Hours, Continuous Positive Airway Pressure (ICD-10-PCS; 2019-12-12)
PROC: 0DH67UZ Insertion of Feeding Device into Stomach, Via Natural or Artificial Opening (ICD-10-PCS; 2019-12-14)
PROC: 0BJ08ZZ Inspection of Tracheobronchial Tree, Via Natural or Artificial Opening Endoscopic (ICD-10-PCS; 2019-12-14)
PROC: B24BZZ4 Ultrasonography of Heart with Aorta, Transesophageal (ICD-10-PCS; 2019-12-14)
PROC: 02HV33Z Insertion of Infusion Device into Superior Vena Cava, Percutaneous Approach (ICD-10-PCS; 2019-12-14)
PROC: 0B9D8ZX Drainage of Right Middle Lung Lobe, Via Natural or Artificial Opening Endoscopic, Diagnostic (ICD-10-PCS; 2019-12-14)
PROC: 0W9930Z Drainage of Right Pleural Cavity with Drainage Device, Percutaneous Approach (ICD-10-PCS; 2019-12-16)
PROC: 0DJ08ZZ Inspection of Upper Intestinal Tract, Via Natural or Artificial Opening Endoscopic (ICD-10-PCS; 2019-12-18)
PROC: 30233N1 Transfusion of Nonautologous Red Blood Cells into Peripheral Vein, Percutaneous Approach (ICD-10-PCS; 2019-12-18)
PROC: 0W9930Z Drainage of Right Pleural Cavity with Drainage Device, Percutaneous Approach (ICD-10-PCS; 2019-12-19)
PROC: 03HY32Z Insertion of Monitoring Device into Upper Artery, Percutaneous Approach (ICD-10-PCS; 2019-12-21)
DX: A41.9 Sepsis, unspecified organism (principal); L89.323 Pressure ulcer of left buttock, stage 3; L89.313 Pressure ulcer of right buttock, stage 3; I50.33 Acute on chronic diastolic (congestive) heart failure; E43 Unspecified severe protein-calorie malnutrition; I33.0 Acute and subacute infective endocarditis; G92 Toxic encephalopathy; J96.21 Acute and chronic respiratory failure with hypoxia; J96.22 Acute and chronic respiratory failure with hypercapnia; J18.9 Pneumonia, unspecified organism; I48.19 Other persistent atrial fibrillation; N17.9 Acute kidney failure, unspecified; E87.0 Hyperosmolality and hypernatremia; J93.9 Pneumothorax, unspecified; T82.838A Hemorrhage due to vascular prosthetic devices, implants and grafts, initial encounter; K92.2 Gastrointestinal hemorrhage, unspecified; T79.7XXA Traumatic subcutaneous emphysema, initial encounter; D62 Acute posthemorrhagic anemia; R57.8 Other shock; R65.20 Severe sepsis without septic shock; I35.8 Other nonrheumatic aortic valve disorders; K22.70 Barrett's esophagus without dysplasia; K44.9 Diaphragmatic hernia without obstruction or gangrene; I35.1 Nonrheumatic aortic (valve) insufficiency; E53.8 Deficiency of other specified B group vitamins; E78.5 Hyperlipidemia, unspecified; F10.10 Alcohol abuse, uncomplicated; I95.9 Hypotension, unspecified; B95.3 Streptococcus pneumoniae as the cause of diseases classified elsewhere; R74.01 Elevation of levels of liver transaminase levels; D69.6 Thrombocytopenia, unspecified; Z66 Do not resuscitate; G70.9 Myoneural disorder, unspecified; I11.0 Hypertensive heart disease with heart failure; E87.6 Hypokalemia; X58.XXXA Exposure to other specified factors, initial encounter; Y93.89 Activity, other specified; Y92.89 Other specified places as the place of occurrence of the external cause; Y99.8 Other external cause status; Z88.0 Allergy status to penicillin; Z85.46 Personal history of malignant neoplasm of prostate; Z71.6 Tobacco abuse counseling; Z71.41 Alcohol abuse counseling and surveillance of alcoholic; Z87.891 Personal history of nicotine dependence
CPT/HCPCS: 10078; 27000; 85026; 85076